=== PATIENT | female | born 1965 | race African-American/Black ===

== ENCOUNTER 2017-05-06 07:41 | Inpatient (IN) | payer MEDICARE, OTHER ==
[~2017-05-06] VITALS: Ht 152.4 cm; Wt 81.1 kg
[2017-05-06] VITALS (11 sets, daily range): BP systolic 133–179; BP diastolic 67–96; PULSE 82–96; RESP 16–20; TEMP 97.8–98.6; O2SAT 94–98
[~2017-05-06 07:41] MED LIST: 1-ME1LIQ PO; CITA40 PO; GABA300C3 PO; KEPP1000 PO; LEVE250 PO; REME15TA PO; RISP3TAB23 PO; VITA100T55 PO
[2017-05-06] MEDS ORDERED: CITA40TA4 PO (08:09)
[2017-05-06] MEDS ORDERED: QUET1TAB10 PO (08:09)
[2017-05-06] MEDS ORDERED: LEVE500T8 PO (08:09)
[2017-05-06] MEDS ORDERED: AMLO5 PO (08:09)
[2017-05-06] MEDS ORDERED: GABA300C5 PO (08:09)
[2017-05-06] MEDS ORDERED: DILA100C PO (08:09)
[2017-05-06] MEDS ORDERED: MIRT30TA PO (08:09)
[2017-05-06] MEDS ORDERED: SODIUM CHLORIDE 0.9% FLUSH 10 ML FLUSH IVF PRN (08:45)
[2017-05-06] MEDS ORDERED: LORazepam 2 MG/ML VIAL IVS ONE (08:45)
--- NOTE | 2017-05-06 08:49 | PD ---
HPI Chief Complaint: Seizure Time Seen by Provider: 08:21 Travel History International Travel<30 days: No Contact w/Intl Traveler<30days: No Traveled to known affect area: No History of Present Illness HPI The patient was seen and examined in the presence of the nurse. This patient complains of having a seizure. She has long-standing history of seizure disorder and also noncompliance. She gives some varying answers as to how compliant she's been. I'm not sure if she's taken medicine in the last few days or not given her variable answers. She reports that she had a seizure and fell and struck her head. She does complain of left frontal headache. She denies any neck pain. She has bilateral knee pain. Symptoms severity is moderate. Duration 1 hour. Paramedics brought her in. Patient is very anxious and panicky. No alleviating factors. Symptoms exacerbated by her lack of compliance. PFSH Past Medical History Arthritis: No Asthma: No Autoimmune Disease: No Blood Disorders: No Anxiety: Yes Depression: Yes Heart Rhythm Problems: No Cancer: No Cardiovascular Problems: Yes High Cholesterol: No Chemotherapy: No Chest Pain: No Congestive Heart Failure: No COPD: No Cerebrovascular Accident: No Diabetes: No Diminished Hearing: No Endocrine: No Gastrointestinal Disorders: No Genitourinary: No Headaches: Yes Hypertension: Yes Immune Disorder: No Implanted Vascular Access Dvce: No Musculoskeletal: No Neurologic: Yes Psychiatric: Yes Reproductive: No Respiratory: No Immunizations Current: Yes Migraines: Yes Radiation Therapy: No Seizures: Yes Sleep Apnea: No Thyroid Disease: No Tetanus Vaccination: > 5 Years Influenza Vaccination: Yes PNEUMOCCOCAL Vaccine (Year): 2 ?: Not Menopausal: Yes : 2 Para: 2 Miscarriage: 0 : 0 Tubal Ligation: Yes Past Surgical History Abdominal Surgery: No Cardiac Surgery: No Ear Surgery: No Endocrine Surgery: No Eye Surgery: No Genitourinary Surgery: No Gynecologic Surgery: Yes (TUBAL LIGATION) Oral Surgery: No Thoracic Surgery: No Other Surgery: Yes Social History Alcohol Use: No Tobacco Use: No Substance Use: No Allergies-Medications (Allergen,Severity, Reaction): Coded Allergies: No Known Allergies (Verified Adverse Reaction, Unknown, 05/06/17) Reported Meds & Prescriptions Reported Meds & Active Scripts Active Reported Gabapentin 300 Mg Cap 300 Mg PO QID Norvasc (Amlodipine Besylate) 5 Mg Tab 5 Mg PO DAILY Dilantin (Phenytoin Extended) 100 Mg Cap 100 Mg PO TID Quetiapine (Quetiapine Fumarate) 300 Mg Tab 300 Mg PO HS Levetiracetam 500 Mg Tab 500 Mg PO TID Citalopram (Citalopram Hydrobromide) 40 Mg Tab 40 Mg PO HS Mirtazapine 30 Mg Tab 30 Mg PO HS Review of Systems General / Constitutional: No: Fever Eyes: No: Visual changes HENT: Positive: Headaches Cardiovascular: No: Chest Pain or Discomfort Respiratory: No: Shortness of Breath Gastrointestinal: No: Abdominal Pain Genitourinary: No: Dysuria Musculoskeletal: Positive: Pain Skin: No Rash Neurologic: Positive: Headache, Seizures, No: Weakness Psychiatric: Positive: Anxiety, No: Depression Endocrine: No: Polydipsia Hematologic/Lymphatic: No: Easy Bruising Physical Exam Narrative GENERAL: Well-nourished, well-developed patient in no apparent distress. SKIN: Focused skin assessment reveals no rash and nodules. Skin is Warm and dry. HEAD: Has some tenderness and swelling to the left low forehead. Normocephalic. EYES: Pupils equal and round. No scleral icterus. No injection or drainage. ENT: No nasal bleeding or discharge. Mucous membranes pink and moist. Has a laceration of the lower lip 0.75 cm in length. Missing a left upper tooth that came out during the fall she reports. She has the tooth. NECK: Trachea midline. No JVD. No midline tenderness CARDIOVASCULAR: Regular rate and rhythm. No murmur appreciated. RESPIRATORY: No accessory muscle use. Clear to auscultation. Breath sounds equal bilaterally. GASTROINTESTINAL: Abdomen soft, non-tender, nondistended. Hepatic and splenic margins not palpable. MUSCULOSKELETAL: No obvious deformities. No clubbing. No cyanosis. No edema. Has some lower extremity abrasion. There is bilateral knee tenderness. NEUROLOGICAL: Awake and alert. No obvious cranial nerve deficits. Motor grossly within normal limits. Normal speech. PSYCHIATRIC: Very anxious mood and affect; insight and judgment seems a bit reduced . Data Data Last Documented VS Vital Signs Date Time Temp Pulse Resp B/P (MAP) Pulse Ox O2 Delivery O2 Flow Rate FiO2 05/06/17 14:07 97.9 96 16 139/87 (104) 98 Room Air Orders Orders Complete Blood Count With Diff (05/06/17 08:33) Alcohol (Ethanol) (1/25/18 08:33) Phenytoin (Dilantin) (05/06/17 08:33) Drug Screen, Random Urine (05/06/17 08:33) Blood Glucose (05/06/17 08:33) Ecg Monitoring (05/06/17 08:33) Iv Access Insert/Monitor (05/06/17 08:33) Oximetry (05/06/17 08:33) Comprehensive Metabolic Panel (05/06/17 08:33) Sodium Chloride 0.9% Flush (Ns Flush) (05/06/17 08:45) Lorazepam Inj (Ativan Inj) (05/06/17 08:45) Ct Brain W/O Iv Contrast(Rout) (05/06/17 ) Knee, Complete (4vws) (05/06/17 ) Knee, Complete (4vws) (05/06/17 ) Phenytoin (Dilantin) (05/06/17 12:25) Labs Laboratory Tests Test 05/06/17 08:30 05/06/17 09:30 05/06/17 12:42 White Blood Count 21.2 TH/MM3 Red Blood Count 4.39 MIL/MM3 Hemoglobin 13.5 GM/DL Hematocrit 39.6 % Mean Corpuscular Volume 90.1 FL Mean Corpuscular Hemoglobin 30.7 PG Mean Corpuscular Hemoglobin Concent 34.1 % Red Cell Distribution Width 15.5 % Platelet Count 517 TH/MM3 Mean Platelet Volume 7.5 FL Neutrophils (%) (Auto) 77.4 % Lymphocytes (%) (Auto) 13.9 % Monocytes (%) (Auto) 8.4 % Eosinophils (%) (Auto) 0.0 % Basophils (%) (Auto) 0.3 % Neutrophils # (Auto) 16.4 TH/MM3 Lymphocytes # (Auto) 2.9 TH/MM3 Monocytes # (Auto) 1.8 TH/MM3 Eosinophils # (Auto) 0.0 TH/MM3 Basophils # (Auto) 0.1 TH/MM3 CBC Comment DIFF FINAL Differential Comment Blood Urea Nitrogen 8 MG/DL Creatinine 0.99 MG/DL Random Glucose 124 MG/DL Total Protein 8.3 GM/DL Albumin 3.5 GM/DL Calcium Level 8.7 MG/DL Alkaline Phosphatase 136 U/L Aspartate Amino Transf (AST/SGOT) 48 U/L Alanine Aminotransferase (ALT/SGPT) 18 U/L Total Bilirubin 0.5 MG/DL Sodium Level 134 MEQ/L Potassium Level 4.6 MEQ/L Chloride Level 103 MEQ/L Carbon Dioxide Level 22.1 MEQ/L Anion Gap 9 MEQ/L Estimat Glomerular Filtration Rate 71 ML/MIN Phenytoin (Dilantin) Level 38.7 MCG/ML 37.4 MCG/ML Ethyl Alcohol Level LESS THAN 3 MG/DL Urine Opiates Screen NEG Urine Barbiturates Screen NEG Urine Amphetamines Screen NEG Urine Benzodiazepines Screen NEG Urine Cocaine Screen POS Urine Cannabinoids Screen POS MDM Medical Decision Making Medical Screen Exam Complete: Yes Emergency Medical Condition: Yes Medical Record Reviewed: Yes Differential Diagnosis Breakthrough seizure, noncompliance, intracranial hemorrhage, knee fracture Narrative Course I have reviewed the patient's electronic medical record. Patient was here for multiple visits in 2015 for breakthrough seizure IV placed CBC shows leukocytosis and thrombocytosis metabolic profile reasonably normal LFT's basically normal lipase is normal Alcohol level is negative Tox screen is positive for marijuana and cocaine I gave her 1 mg IV Ativan Brain CT is negative for traumatic injury intracranially, has soft tissue swelling superficially Right knee x-rays are reviewed and negative for fracture Left knee x-rays are reviewed and negative for fracture Procedure note: She is verbal consent to lower lip laceration repair LACERATION LOCATION: Lower lip LENGTH: 0.75 cm NUMBER OF STITCHES/SORAIDA: 1 REPAIR: The area of the laceration was cleaned and sterilely draped. No anesthesia required. The wound was copiously irrigated and explored without evidence of foreign body or neurovascular injury. The wound was closed using 5- 0 Vicryl . This was a single layer repair. Patient tolerated the procedure well. Dilantin level is come back very elevated at 38.7. This was reviewed with poison control. They did not think the patient required admission and lasts a repeat level would not go down. 4 hours after the original level was drawn I'm repeating a second one. Repeat Dilantin 4 hours later is at 37, barely lower Tried and laid her and she cannot and related all. She can't even really get out of bed effectively. She will Require adMission for Dilantin toxicity I reviewed with hospitalist Diagnosis Primary Impression: Phenytoin toxicity Qualified Codes: T42.0X1A - Poisoning by hydantoin derivatives, accidental ( unintentional), initial encounter Additional Impressions: Seizure Polysubstance abuse Admitting Information Admitting Physician Requests: Admit Eusebio Mendoza MD May 06, 2017 08:48
[2017-05-06 09:07] LABS: AUTOMATED NEUTROPHIL # 16.4 TH/MM3 (1.8-7.7); BASOPHIL # 0.1 TH/MM3 (0-0.2); BASOPHIL % 0.3 % (0.0-2.0); HEMATOCRIT 39.6 % (35.0-46.0); HEMOGLOBIN 13.5 GM/DL (11.6-15.3); LYMPH % 13.9 % (9.0-44.0); LYMPHOCYTE # 2.9 TH/MM3 (1.0-4.8); MEAN CELL VOLUME 90.1 FL (80.0-100.0); MEAN CORPUSCULAR HEMOGLOBIN 30.7 PG (27.0-34.0); MEAN CORPUSCULAR HGB CONC 34.1 % (32.0-36.0); MEAN PLATELET VOLUME 7.5 FL (7.0-11.0); MONO % 8.4 % (0.0-8.0); MONOCYTE # 1.8 TH/MM3 (0-0.9); NEUT % 77.4 % (16.0-70.0); PLATELET COUNT 517 TH/MM3 (150-450); RED BLOOD COUNT 4.39 MIL/MM3 (4.00-5.30); RED CELL DISTRIBUTION WIDTH 15.5 % (11.6-17.2); WHITE BLOOD COUNT 21.2 TH/MM3 (4.0-11.0)
--- NOTE | 2017-05-06 09:23 | RADRPT ---
EXAM DATE/TIME: 05/06/2017 08:57 [facility] COMPARISON: CT BRAIN W/O CONTRAST, May 15, 2015, 12:16. INDICATIONS : Seizure x3 this am hit head and face. RADIATION DOSE: 33.81 CTDIvol (mGy) MEDICAL HISTORY : Seizures. Hypertension. SURGICAL HISTORY : Tubal ligation. ENCOUNTER: Initial ACUITY: 1 day PAIN SCALE: 10/10 LOCATION: Bilateral cranial TECHNIQUE: Multiple contiguous axial images were obtained of the head. Using automated exposure control and adj ustment of the mA and/or kV according to patient size, radiation dose was kept as low as reasonably a chievable to obtain optimal diagnostic quality images. DICOM format image data is available electro nically for review and comparison. FINDINGS: CEREBRUM: The ventricles are normal for age. No evidence of midline shift, mass lesion, hemorrhage or acute in farction. No extra-axial fluid collections are seen. POSTERIOR FOSSA: The cerebellum and brainstem are intact. The 4th ventricle is midline. The cerebellopontine angle i s unremarkable. EXTRACRANIAL: The visualized portion of the orbits is intact. Mild left frontal soft tissue swelling. SKULL: The calvaria is intact. No evidence of skull fracture. CONCLUSION: 1. Mild left frontal soft tissue swelling. 2. No acute intracranial abnormality. Yovany Dumont Jr., MD on May 06, 2017 at 9:19 Board Certified Radiologist. This report was verified electronically.
[2017-05-06 09:25] LABS: ALT (GPT) 18 U/L (10-53)
[2017-05-06 09:28] LABS: ALBUMIN 3.5 GM/DL (3.4-5.0); ALKALINE PHOSPHATASE 136 U/L (45-117); AST (GOT) 48 U/L (15-37); BICARBONATE 22.1 MEQ/L (21.0-32.0); BLOOD UREA NITROGEN 8 MG/DL (7-18); CALCIUM 8.7 MG/DL (8.5-10.1); CHLORIDE 103 MEQ/L (98-107); CREATININE 0.99 MG/DL (0.50-1.00); GLOMERULAR FILTRATION RATE 71 ML/MIN (>89); GLUCOSE,RANDOM 124 MG/DL (74-106); SODIUM (NA) 134 MEQ/L (136-145); TOTAL BILIRUBIN ADULT 0.5 MG/DL (0.2-1.0); TOTAL PROTEIN 8.3 GM/DL (6.4-8.2)
[2017-05-06 09:33] LABS: PHENYTOIN (DILANTIN) 38.7 MCG/ML (10.0-20.0)
--- NOTE | 2017-05-06 09:35 | RADRPT ---
EXAM DATE/TIME: 05/06/2017 09:09 [facility] COMPARISON: No previous studies available for comparison. INDICATIONS : Patient had seizure, falling on knees pain with swelling. MEDICAL HISTORY : Seizure SURGICAL HISTORY : None. ENCOUNTER: Initial ACUITY: 1 day PAIN SCORE: 6/10 LOCATION: Right knee TECH NOTE: RMA< DFSSCDOROTEO PAPPAS MR#[id number] :63 Exam date/desc:May 06, 2017KNEE RIGHT COMPLE TE (4VWS) FINDINGS: Four view examination of the right knee demonstrates no evidence of fracture or dislocation. Bony mi neralization is normal. The articular surfaces are intact. The suprapatellar soft tissues have a no rmal configuration. CONCLUSION: Unremarkable examination of the right knee. Yovany Dumont Jr., MD on May 06, 2017 at 9:32 Board Certified Radiologist. This report was verified electronically.
--- NOTE | 2017-05-06 09:40 | RADRPT ---
EXAM DATE/TIME: 05/06/2017 09:15 [facility] COMPARISON: No previous studies available for comparison. INDICATIONS : Patient had seizure falling on knees. MEDICAL HISTORY : Seizure SURGICAL HISTORY : None. ENCOUNTER: Initial ACUITY: 1 day PAIN SCORE: 5/10 LOCATION: Left Knee FINDINGS: 4 views of the left knee. Bone alignment within normal limits. No evidence of fracture. No evidence of joint effusion. Small quadriceps insertion enthesophyte noted. No joint narrowing. No focal bone e rosion. CONCLUSION: No evidence of fracture. Fuentes Mcneil MD on May 06, 2017 at 9:34 Board Certified Radiologist. This report was verified electronically.
[2017-05-06] MEDS ORDERED: MAGNESIUM HYDROXIDE SUSP 30 ML CUP PO PRN (14:45)
[2017-05-06] MEDS ORDERED: SODIUM CHLORIDE 0.9% FLUSH 10 ML FLUSH IV FLUSH PRN (14:45)
[2017-05-06] MEDS ORDERED: ONDANSETRON HCL 4 MG/2 ML VIAL IVP PRN (14:45)
[2017-05-06] MEDS ORDERED: LACTULOSE SYRUP 20 GM/30 ML CUP PO PRN (14:45)
[2017-05-06] MEDS ORDERED: SENNOSIDES 8.6 MG TAB PO PRN (14:45)
[2017-05-06] MEDS ORDERED: ACETAMINOPHEN 325 MG TAB PO PRN (14:45)
[2017-05-06] MEDS ORDERED: NALOXONE HCL 0.4 MG/ML AMP IV PUSH PRN (14:45)
[2017-05-06] MEDS ORDERED: BISACODYL 10 MG SUPP RECTAL PRN (14:45)
[2017-05-06] MEDS: SODIUM CHLOR 0.9% 1000 ML INJ 1,000 ML IV SCH (15:09)
--- NOTE | 2017-05-06 15:54 | HHI.HP ---
HPI [facility] Phys[facility] Christopher Padilla MD Admission Diagnosis dilantin toxicity, PSA, seizure Diagnoses: Chief Complaint: seizures Travel History International Travel<30 Days: No Contact w/Intl Traveler <30 Da: No Traveled to Known Affected Are: No History of Present Illness Written by Marivel Dow, acting as scribe for Dr. Ashton on 05/06/17 at 15: 51. 51-year-old female with history of seizures, anxiety, depression, hypertension, presents with 3 seizures in the past 24hours. The patient states she presented to the hospital because she's had 2 seizures last night and 1 this morning. She hit her head with the seizure this morning, sustaining a laceration to her lip and forehead hematoma. She reports her daughter witnessed tonic clonic seizure activity. She reports tongue and lip biting with her seizures. Prior to the seizures, she feels overheated and drowsy, then she usually lays down then has a seizure. She denies any recent changes to her medications. She takes Keppra and Dilantin for her seizures. She reports compliance with her medications. No further seizures while in the ER, however patient has been postictal and unable to ambulate. Her Dilantin level was found to be elevated at 38.7. UDS positive for cocaine and cannabinoids. Today she does report dizziness and gait instability. Denies any recent fevers/chills, headache, chest pain, palpitations , cough, shortness of breath, abdominal or urinary complaints. She denies any other medical complaints at this time. Review of Systems Except as stated in HPI: all other systems reviewed are Neg Past Family Social History Past Medical History seizures anxiety depression hypertension Past Surgical History Tubal ligation Reported Medications Gabapentin 300 Mg Cap 300 Mg PO QID Norvasc (Amlodipine Besylate) 5 Mg Tab 5 Mg PO DAILY Dilantin (Phenytoin Extended) 100 Mg Cap 100 Mg PO TID Quetiapine (Quetiapine Fumarate) 300 Mg Tab 300 Mg PO HS Levetiracetam 500 Mg Tab 500 Mg PO TID Citalopram (Citalopram Hydrobromide) 40 Mg Tab 40 Mg PO HS Mirtazapine 30 Mg Tab 30 Mg PO HS Allergies: Coded Allergies: No Known Allergies (Verified Allergy, Unknown, 05/06/17) Active Ordered Medications Current Medications Medications (Trade) Dose Ordered Sig/Jarrett Route Start Time Stop Time Status Last Admin (NS Flush) 2 ml UNSCH PRN IVF 05/06/17 08:45 05/06/17 08:48 (Norvasc) 5 mg DAILY PO 05/07/17 09:00 (CeleXA) 40 mg HS PO 05/06/17 21:00 (Neurontin) 300 mg QID PO 05/06/17 18:00 (Keppra) 500 mg TID PO 05/06/17 18:00 (Remeron) 30 mg HS PO 05/06/17 21:00 (SEROquel) 300 mg HS PO 05/06/17 21:00 Sodium Chloride 1,000 ml @ 100 mls/hr Q10H IV 05/06/17 14:44 05/06/17 15:09 (NS Flush) 2 ml UNSCH PRN IV FLUSH 05/06/17 14:45 (NS Flush) 2 ml BID IV FLUSH 05/06/17 21:00 (Tylenol) 650 mg Q4H PRN PO 05/06/17 14:45 (Zofran Inj) 4 mg Q6H PRN IVP 05/06/17 14:45 (Tylenol) 650 mg Q6H PRN PO 05/06/17 14:45 (Narcan Inj) 0.4 mg UNSCH PRN IV PUSH 05/06/17 14:45 (Paula-Colace) 1 tab BID PO 05/06/17 21:00 (Milk Of Magnesia Liq) 30 ml Q12H PRN PO 05/06/17 14:45 (Senokot) 17.2 mg Q12H PRN PO 05/06/17 14:45 (Dulcolax Supp) 10 mg DAILY PRN RECTAL 05/06/17 14:45 (Lactulose Liq) 30 ml DAILY PRN PO 05/06/17 14:45 Family History Denies any family history of seizures or brain cancers. Social History Denies any tobacco or alcohol use Uses cocaine and marijuana Physical Exam Vital Signs Vital Signs Date Time Temp Pulse Resp B/P (MAP) Pulse Ox O2 Delivery O2 Flow Rate FiO2 05/06/17 14:07 97.9 96 16 139/87 (104) 98 Room Air 05/06/17 12:00 97.8 83 16 150/77 (101) 98 Room Air 05/06/17 10:28 97.9 96 18 137/74 (95) 98 Room Air 05/06/17 09:42 97.8 84 17 168/89 (115) 98 Room Air 05/06/17 08:44 16 98 Room Air 05/06/17 08:00 81 16 98 Room Air 05/06/17 07:51 97.9 82 18 179/96 (123) 98 Physical Exam GENERAL: Well-nourished, well-developed middle aged female patient in [facility]. SKIN: Warm and dry. No rash. Lower lip laceration s/p repair. HEAD: Normocephalic. Left frontal hematoma. EYES: Pupils equal and round. No scleral icterus. Left eye injection. ENT: No nasal bleeding or discharge. Mucous membranes pink and moist. NECK: Supple. Trachea midline. CARDIOVASCULAR: Regular rate and rhythm. S1, S2 noted. No murmur appreciated. RESPIRATORY: No accessory muscle use. Clear to auscultation. Breath sounds equal bilaterally. GASTROINTESTINAL: Abdomen soft, non-tender, nondistended. Normoactive bowel sounds x4. MUSCULOSKELETAL: No obvious deformities. Extremities without clubbing, cyanosis , or edema. NEUROLOGICAL: Awake and alert. No obvious cranial nerve deficits. Motor grossly within normal limits. Moving all extremities spontaneously. Normal speech. PSYCHIATRIC: Slightly anxious; insight and judgment normal. Laboratory Laboratory Tests Test 05/06/17 08:30 05/06/17 09:30 05/06/17 12:42 White Blood Count 21.2 Red Blood Count 4.39 Hemoglobin 13.5 Hematocrit 39.6 Mean Corpuscular Volume 90.1 Mean Corpuscular Hemoglobin 30.7 Mean Corpuscular Hemoglobin Concent 34.1 Red Cell Distribution Width 15.5 Platelet Count 517 Mean Platelet Volume 7.5 Neutrophils (%) (Auto) 77.4 Lymphocytes (%) (Auto) 13.9 Monocytes (%) (Auto) 8.4 Eosinophils (%) (Auto) 0.0 Basophils (%) (Auto) 0.3 Neutrophils # (Auto) 16.4 Lymphocytes # (Auto) 2.9 Monocytes # (Auto) 1.8 Eosinophils # (Auto) 0.0 Basophils # (Auto) 0.1 CBC Comment DIFF FINAL Differential Comment Blood Urea Nitrogen 8 Creatinine 0.99 Random Glucose 124 Total Protein 8.3 Albumin 3.5 Calcium Level 8.7 Alkaline Phosphatase 136 Aspartate Amino Transf (AST/SGOT) 48 Alanine Aminotransferase (ALT/SGPT) 18 Total Bilirubin 0.5 Sodium Level 134 Potassium Level 4.6 Chloride Level 103 Carbon Dioxide Level 22.1 Anion Gap 9 Estimat Glomerular Filtration Rate 71 Phenytoin (Dilantin) Level 38.7 37.4 Ethyl Alcohol Level LESS THAN 3 Urine Opiates Screen NEG Urine Barbiturates Screen NEG Urine Amphetamines Screen NEG Urine Benzodiazepines Screen NEG Urine Cocaine Screen POS Urine Cannabinoids Screen POS Result Diagram: 05/06/1730 05/06/1730 Imaging Last Impressions Knee X-Ray 05/06/17 0000 Signed Impressions: Service Date/Time: April 09:09 - CONCLUSION: Unremarkable examination of the right knee. Yovany Dumont Jr., MD Head CT 05/06/17 0000 Signed Impressions: Service Date/Time: April 08:57 - CONCLUSION: 1. Mild left frontal soft tissue swelling. 2. No acute intracranial abnormality. Yovany Dumont Jr., MD Caprini VTE Risk Assessment Caprini VTE Risk Assessment: No/Low Risk (score <= 1) Caprini Risk Assessment Model Point Value = 1 Point Value = 2 Point Value = 3 Point Value = 5 Age 41-60 Minor surgery BMI > 25 kg/m2 Swollen legs Varicose veins or History of unexplained or recurrent spontaneous Oral contraceptives or hormone replacement Sepsis (< 1 month) Serious lung disease, including pneumonia (< 1 month) Abnormal pulmonary function Acute myocardial infarction Congestive heart failure (< 1 month) History of inflammatory bowel disease Medical patient at bed rest Age 61-74 Arthroscopic surgery Major open surgery (> 45 min) Laparoscopic surgery (> 45 min) Malignancy Confined to bed (> 72 hours) Immobilizing plaster cast Central venous access Age >= 75 History of VTE Family history of VTE Factor V Leiden Prothrombin [id number] Lupus anticoagulant Anticardiolipin antibodies Elevated serum homocysteine Heparin-induced thrombocytopenia Other congenital or acquired thrombophilia Stroke (< 1 month) Elective arthroplasty Hip, pelvis, or leg fracture Acute spinal cord injury (< 1 month) Prophylaxis Regimen Total Risk Factor Score Risk Level Prophylaxis Regimen 0-1 Low Early ambulation 2 Moderate Order ONE of the following: *Sequential Compression Device (SCD) *Heparin 5000 units SQ BID 3-4 Higher Order ONE of the following medications: *Heparin 5000 units SQ TID *Enoxaparin/Lovenox 40 mg SQ daily (WT < 150 kg, CrCl > 30 mL/min) *Enoxaparin/Lovenox 30 mg SQ daily (WT < 150 kg, CrCl > 10-29 mL/min) *Enoxaparin/Lovenox 30 mg SQ BID (WT < 150 kg, CrCl > 30 mL/min) AND/OR *Sequential Compression Device (SCD) 5 or more Highest Order ONE of the following medications: *Heparin 5000 units SQ TID (Preferred with Epidurals) *Enoxaparin/Lovenox 40 mg SQ daily (WT < 150 kg, CrCl > 30 mL/min) *Enoxaparin/Lovenox 30 mg SQ daily (WT < 150 kg, CrCl > 10-29 mL/min) *Enoxaparin/Lovenox 30 mg SQ BID (WT < 150 kg, CrCl > 30 mL/min) AND *Sequential Compression Device (SCD) Assessment and Plan Problem List: (1) Seizure ICD Code: R56.9 - Convulsions Status: Chronic (2) Phenytoin toxicity ICD Code: T42.0X1A - Poisoning by hydantoin derivatives, accidental ( unintentional), initial encounter Status: Acute (3) Polysubstance abuse ICD Code: F19.10 - Other psychoactive substance abuse, uncomplicated Status: Acute Assessment and Plan 51-year-old female with history of seizures, anxiety, depression, hypertension, presents with 3 seizures in the past 24hours. Seizures: patient reports 3 seizures in past 24 hours. Suspect secondary to cocaine use. -Check EEG -Holding patient's dilantin with dilantin toxicity -Continue patient's Keppra -IV Ativan prn seizure -Monitor on telemetry -Advised on cessation from drugs or any toxic substances that can trigger a seizure -Seizure/Fall precautions -No driving -Check CPK Dilantin Toxicity: dilantin level 38. -hold patient's dilantin -monitor daily dilantin level Toxic Encephalopathy: patient with AMS while in the ER, appears to be more awake /alert. Suspect secondary to polysubstance abuse, dilantin toxicity, and postictal state. -head CT images reviewed, shows mild left frontal soft tissue swelling; no acute intracranial abnormality -monitor neuro checks -monitor for improvement Leukocytosis: WBC 21.2K. Suspect reactive secondary to seizures. Rule out infection. Afebrile. -CXR images reviewed, no acute findings. -check urinalysis -Give IVF hydration -Repeat CBC in am Hypertension: chronic, fairly well controlled -continue patient's Norvasc 5mg daily -monitor BP and adjust antihypertensives as needed Anxiety/Depression: chronic -continue patient's Citalopram, Mirtazapine, and Seroquel Lip Laceration: secondary to fall/seizure as above -s/p repair in the ER Left Frontal Hematoma: secondary to fall/seizure -ice pack to forehead -pain control prn Polysubstance Abuse: acute on chronic -UDS positive for cocaine and cannabinoids -strongly counseled on cessation DVT Prophylaxis: teds/SCDs; avoid chemoprophylaxis with recent head injury Discussed Condition With This note was transcribed by trenton Dow. I, Dr. Manuel Ashton personally performed the history, physical exam, and medical decision making; and confirmed the accuracy of the information in the transcribed note. Authenticated by Dr. Manuel Ashton on 05/06/17 at 15:59. Physician Certification 2 Midnight Certification Type: Admission for Inpatient Services Order for Inpatient Services The services are ordered in accordance with Medicare regulations or non- Medicare payer requirements, as applicable. In the case of services not specified as inpatient-only, they are appropriately provided as inpatient services in accordance with the 2-midnight benchmark. Estimated LOS (days): 2 days is the estimated time the patient will need to remain in the hospital, assuming treatment plan goals are met and no additional complications. Post-Hospital Plan: Home Problem Qualifiers (1) Phenytoin toxicity: Qualified Codes: T42.0X1A - Poisoning by hydantoin derivatives, accidental ( unintentional), initial encounter Marivel Dow PA-C May 06, 2017 3:54 pm Manuel Ashton MD May 06, 2017 3:59 pm
--- NOTE | 2017-05-06 16:25 | RADRPT ---
EXAM DATE/TIME: 05/06/2017 14:57 [facility] COMPARISON: CHEST SINGLE AP, October 01, 2015, 19:20. INDICATIONS : Short of breath, cough MEDICAL HISTORY : Seizures. Hypertension. SURGICAL HISTORY : Tubal ligation. ENCOUNTER: Initial ACUITY: 1 week PAIN SCORE: 0/10 LOCATION: chest FINDINGS: Single AP view of the chest. Lungs are clear. Lung volumes are low. No evidence of pleural effusion o r pneumothorax. Cardiomediastinal silhouette within normal limits. CONCLUSION: No acute cardiopulmonary disease identified. Fuentes Mcneil MD on May 06, 2017 at 16:22 Board Certified Radiologist. This report was verified electronically.
[2017-05-06] MEDS ORDERED: LORazepam 2 MG/ML VIAL IV PUSH PRN (16:30)
[2017-05-06] MEDS: GABAPENTIN 300 MG CAP PO SCH ×2 (18:23→20:49)
[2017-05-06] MEDS: levETIRAcetam 500 MG TAB PO SCH (18:23)
--- NOTE | 2017-05-06 19:31 | MG ---
cc: CAIT GUADALUPE MD Lab No: Date: 05/06/17 Age: 51 Sex: F Race: REFERRING PHYSICIAN Dr. Ashton An EEG was obtained on this 51-year-old patient awake, drowsy and slightly confused with some hallucinations as well. History of seizure. The EEG shows a lot of low amplitude beta rhythms intermixed with some low to mid amplitude alpha activity. There are some intermixed sharp contoured waves, questionable sharp discharges on the left more than right. The background is reactive. There are theta rhythms as well. There is awake and drowsiness. There is no ictal activity. Photic stimulation showed some bilateral driving response. INTERPRETATION Mildly abnormal EEG. There is some intermixed sharp waves/discharges, possibly left more than right, of possible epileptiform significance. There is no ictal activity. MD LINDSEY Mcnally/ /6:10 PM /7:11 PM
[2017-05-06] MEDS: CITALOPRAM HYDROBROMIDE 40 MG TAB PO SCH (20:49)
[2017-05-06] MEDS: MIRTAZAPINE 15 MG TAB PO SCH (20:49)
[2017-05-06] MEDS: ACETAMINOPHEN 325 MG TAB PO PRN (20:49)
[2017-05-06] MEDS: SODIUM CHLORIDE 0.9% FLUSH 10 ML FLUSH IV FLUSH SCH (20:50)
[2017-05-06] MEDS: DOCUSATE SODIUM 50 MG/SENNA 8.6 MG TAB PO SCH (20:50)
[2017-05-06] MEDS: QUEtiapine FUMARATE 300 MG TAB PO SCH (21:13)
[2017-05-06 22:54] LABS: AMORPHOUS SEDIMENT, URINE RARE; BILIRUBIN, URINE NEG (NEG); BLOOD, URINE SMALL (NEG); GLUCOSE,URINE NEG (NEG); HYALINE CAST, URINE 3 /lpf (RARE); KETONE, URINE 10 mg/dL (NEG); MUCUS URINE FEW /lpf (OCC); NITRITE,URINE NEG (NEG); SQUAMOUS EPITHELIAL CELL URINE 4 /hpf (0-5); URINE COLOR YELLOW (YELLW/STRAW); URINE LEUKOCYTE ESTERASE NEG (NEG)
[2017-05-07] VITALS (10 sets, daily range): BP systolic 112–141; BP diastolic 59–96; PULSE 61–94; RESP 16–20; TEMP 97.8–98.5; O2SAT 94–96
[2017-05-07] MEDS: SODIUM CHLOR 0.9% 1000 ML INJ 1,000 ML IV SCH ×3 (00:57→22:09)
[2017-05-07 08:15] LABS: AUTOMATED NEUTROPHIL # 10.2 TH/MM3 (1.8-7.7); BASOPHIL % 0.3 % (0.0-2.0); EOSINOPHIL # 0.1 TH/MM3 (0-0.4); EOSINOPHIL % 0.5 % (0.0-4.0); HEMATOCRIT 38.3 % (35.0-46.0); HEMOGLOBIN 13.2 GM/DL (11.6-15.3); LYMPH % 21.9 % (9.0-44.0); LYMPHOCYTE # 3.2 TH/MM3 (1.0-4.8); MEAN CELL VOLUME 89.8 FL (80.0-100.0); MEAN CORPUSCULAR HGB CONC 34.5 % (32.0-36.0); MEAN PLATELET VOLUME 7.3 FL (7.0-11.0); MONO % 7.7 % (0.0-8.0); MONOCYTE # 1.1 TH/MM3 (0-0.9); NEUT % 69.6 % (16.0-70.0); PLATELET COUNT 422 TH/MM3 (150-450); RED BLOOD COUNT 4.26 MIL/MM3 (4.00-5.30); RED CELL DISTRIBUTION WIDTH 15.8 % (11.6-17.2); WHITE BLOOD COUNT 14.7 TH/MM3 (4.0-11.0)
[2017-05-07 09:10] LABS: ALBUMIN 3.2 GM/DL (3.4-5.0); ALKALINE PHOSPHATASE 129 U/L (45-117); ALT (GPT) 20 U/L (10-53); AST (GOT) 38 U/L (15-37); BICARBONATE 24.1 MEQ/L (21.0-32.0); BLOOD UREA NITROGEN 5 MG/DL (7-18); CALCIUM 8.3 MG/DL (8.5-10.1); CHLORIDE 103 MEQ/L (98-107); CREATININE 0.62 MG/DL (0.50-1.00); GLOMERULAR FILTRATION RATE 122 ML/MIN (>89); GLUCOSE,RANDOM 87 MG/DL (74-106); SODIUM (NA) 134 MEQ/L (136-145); TOTAL BILIRUBIN ADULT 0.5 MG/DL (0.2-1.0); TOTAL PROTEIN 8.1 GM/DL (6.4-8.2)
[2017-05-07] MEDS: amLODIPine BESYLATE 5 MG TAB PO SCH (09:41)
[2017-05-07] MEDS: DOCUSATE SODIUM 50 MG/SENNA 8.6 MG TAB PO SCH ×2 (09:41→22:02)
[2017-05-07] MEDS: GABAPENTIN 300 MG CAP PO SCH ×4 (09:41→22:02)
[2017-05-07] MEDS: SODIUM CHLORIDE 0.9% FLUSH 10 ML FLUSH IV FLUSH SCH ×2 (09:41→22:02)
[2017-05-07] MEDS: levETIRAcetam 500 MG TAB PO SCH ×3 (09:41→18:00)
[2017-05-07 09:56] LABS: PHENYTOIN (DILANTIN) 38.7 MCG/ML (10.0-20.0)
--- NOTE | 2017-05-07 11:43 | HHI.PR ---
Subjective Remarks patient awake and alert now states she is tire of living and wants to and "kill myself, just suffering" states she is not taking more than her usual dose of dilantin admits to using cocaine - not often though per patient Objective Vitals Vital Signs Date Time Temp Pulse Resp B/P (MAP) Pulse Ox O2 Delivery O2 Flow Rate FiO2 05/07/17 10:22 86 05/07/17 08:18 98.5 87 18 131/85 (100) 94 05/07/17 05:37 97.8 94 19 131/96 (108) 95 05/07/17 00:18 98.4 86 16 112/59 (76) 95 05/07/17 00:15 85 05/06/17 21:10 98.6 84 18 147/67 (93) 94 05/06/17 20:30 84 05/06/17 18:14 97 05/06/17 17:53 98.5 85 20 133/78 (96) 95 05/06/17 15:56 98.1 87 17 143/91 (108) 97 Room Air 05/06/17 14:07 97.9 96 16 139/87 (104) 98 Room Air 05/06/17 12:00 97.8 83 16 150/77 (101) 98 Room Air I/O 05/06/17 05/06/17 05/06/17 05/07/17 05/07/17 05/07/17 07:00 15:00 23:00 07:00 15:00 23:00 # Voids 1 Result Diagram: 05/07/17 0720 05/07/17 0720 Imaging Last Impressions Chest X-Ray 05/06/17 1444 Signed Impressions: Service Date/Time: April 14:57 - CONCLUSION: No acute cardiopulmonary disease identified. Fuentes Mcneil MD Knee X-Ray 05/06/17 0000 Signed Impressions: Service Date/Time: April 09:09 - CONCLUSION: Unremarkable examination of the right knee. Yovany Dumont Jr., MD Head CT 05/06/17 0000 Signed Impressions: Service Date/Time: April 08:57 - CONCLUSION: 1. Mild left frontal soft tissue swelling. 2. No acute intracranial abnormality. Yovany Dumont Jr., MD Objective Remarks awake and alert, oriented x 3 anicteric lungs clear regular rhythm abdomens oft, nontender extremities no edema neuro exam- non focal A/P Problem List: (1) Seizure ICD Code: R56.9 - Convulsions Status: Chronic (2) Phenytoin toxicity ICD Code: T42.0X1A - Poisoning by hydantoin derivatives, accidental ( unintentional), initial encounter Status: Acute (3) Polysubstance abuse ICD Code: F19.10 - Other psychoactive substance abuse, uncomplicated Status: Acute Assessment and Plan 51-year-old female with history of seizures, anxiety, depression, hypertension, presents with 3 seizures in the past 24hours. Seizures: patient reports 3 seizures in past 24 hours. Suspect secondary to cocaine use. -Check EEG -Holding patient's dilantin -Continue patient's Keppra -IV Ativan prn seizure -Monitor on telemetry -d/w her that cocaine and illicit drugs can lower seziure threshold- expressed understanding -Seizure/Fall precautions -No driving -Neurology consulted Dilantin Toxicity: dilantin level 38. -hold patient's dilantin -monitor daily dilantin level rhabdomyolysis Increase IVF rate Toxic Encephalopathy: patient with AMS while in the ER, appears to be more awake /alert.- MS improved appears depressed Suspect secondary to polysubstance abuse, dilantin toxicity, and postictal state. -head CT images reviewed, shows mild left frontal soft tissue swelling; no acute intracranial abnormality -monitor neuro checks - Leukocytosis: WBC 21.2K. Suspect reactive secondary to seizures. Rule out infection. Afebrile. -CXR images reviewed, no acute findings. -check urinalysis -Give IVF hydration -Repeat CBC in am Hypertension: chronic, fairly well controlled -continue patient's Norvasc 5mg daily -monitor BP and adjust antihypertensives as needed Anxiety/Depression: chronic -continue patient's Citalopram, Mirtazapine, and Seroquel Psychiatry consult- - now expressed desperation and wanting to Lip Laceration: secondary to fall/seizure as above -s/p repair in the ER Left Frontal Hematoma: secondary to fall/seizure -ice pack to forehead -pain control prn Polysubstance Abuse: acute on chronic -UDS positive for cocaine and cannabinoids -strongly counseled on cessation DVT Prophylaxis: teds/SCDs; avoid chemoprophylaxis with recent head injury PT consult Problem Qualifiers (1) Phenytoin toxicity: Qualified Codes: T42.0X1A - Poisoning by hydantoin derivatives, accidental ( unintentional), initial encounter Augusto Mast MD May 07, 2017 11:43
--- NOTE | 2017-05-07 12:11 | MB ---
cc: CAIT GUADALUPE M.D. DATE OF CONSULTATION 05/07/2017 HISTORY OF PRESENT ILLNESS The patient is a 51-year-old seen in neurological consultation. She was admitted yesterday with a history of three seizures 24 hours prior to admission. She apparently had some seizure witnessed by the daughter as generalized tonic-clonic activity with tongue and lip injury. She describes that she has had seizures since she was a child. She says she has seen Dr. Knott but her last appointment was a while ago. She was going to see her medical doctor tomorrow. MEDICATIONS She says she takes her medications regularly which include: 1. Dilantin 100 mg three times a day. 2. Keppra 500 mg three times a day. 3. Gabapentin 300 mg four times a day. Other medicines are Norvasc, quetiapine 300 mg at bedtime, citalopram 40 mg at bedtime and mirtazapine. SOCIAL HISTORY The patient denies alcohol and drugs but her urine was positive for cocaine and marijuana. LABORATORY Dilantin level was 38.7. White count yesterday was 21.2, hemoglobin 13.5. Sodium 134. CPK 1586. BUN and creatinine normal. Calcium normal. Glucose 124. NEUROLOGICAL EXAMINATION On exam the patient was asleep but awakened and then she appeared alert and oriented. She thought the date was the , but she knew the day of the week and place, and she provided the medical history. Ocular movements and visual alva full. She feels drowsy. She has grossly normal motor functions in the four extremities. She describes that when she walked with the nurse to the bathroom she was still unable to walk by herself today. Reflexes 1+ at the knees and elbows, diminished at the ankles. Plantar responses probably flexor bilaterally. She has pain in her left knee due to the fall. IMAGING The CT brain showed left frontal tissue swelling but no intracranial abnormality. ASSESSMENT 1. Recurrent seizures. 2. Dilantin toxicity. 3. Drug abuse. 4. Rhabdomyolysis. PLAN/RECOMMENDATIONS The Dilantin needs to be on hold until her Dilantin level comes to around 20-25 when we will resume the Dilantin. It is unclear why her Dilantin level is so high, but evidently she is not compliant with medical care and wonder if she is taking excessive medication or if it is due to the combination of medications and substance abuse. I have discussed all these with the patient. She seems to be improving neurologic-barrios. Monitor Dilantin level daily. She is to be continued with the Keppra as is. Continue on the gabapentin as is. I will follow the neurological course. She has p.r.n. Ativan for seizures. Thank you for asking us to assist in her care. Cait Guadalupe MD OF[facility]/BT /10:13 AM /11:58 AM
[2017-05-07] MEDS: ACETAMINOPHEN 325 MG TAB PO PRN (12:57)
[2017-05-07] MEDS: CITALOPRAM HYDROBROMIDE 40 MG TAB PO SCH (22:02)
[2017-05-07] MEDS: MIRTAZAPINE 15 MG TAB PO SCH (22:02)
[2017-05-07] MEDS: QUEtiapine FUMARATE 300 MG TAB PO SCH (22:02)
[2017-05-08] VITALS (9 sets, daily range): BP systolic 122–143; BP diastolic 60–82; PULSE 77–93; RESP 17–20; TEMP 97.8–98.2; O2SAT 93–97
[2017-05-08] MEDS: SODIUM CHLOR 0.9% 1000 ML INJ 1,000 ML IV SCH ×2 (02:22→15:13)
[2017-05-08] MEDS: SODIUM CHLORIDE 0.9% FLUSH 10 ML FLUSH IV FLUSH SCH ×2 (08:46→21:00)
[2017-05-08] MEDS: GABAPENTIN 300 MG CAP PO SCH ×4 (08:48→21:09)
[2017-05-08] MEDS: DOCUSATE SODIUM 50 MG/SENNA 8.6 MG TAB PO SCH ×2 (08:48→21:09)
[2017-05-08] MEDS: amLODIPine BESYLATE 5 MG TAB PO SCH (08:48)
[2017-05-08] MEDS: levETIRAcetam 500 MG TAB PO SCH ×3 (08:48→17:44)
--- NOTE | 2017-05-08 11:32 | HHI.PR ---
Subjective Remarks this am is smiling and interactive now denies any suicidal thought ro thoughts of dying complains of "sore/aches" muscles voding well good po no headaches Objective Vitals Vital Signs Date Time Temp Pulse Resp B/P (MAP) Pulse Ox O2 Delivery O2 Flow Rate FiO2 05/08/17 08:00 97.8 93 17 137/72 (93) 96 05/08/17 08:00 82 05/08/17 06:08 97.9 85 20 134/78 (96) 93 05/08/17 00:57 97.9 86 19 122/60 (80) 93 05/08/17 00:04 89 05/07/17 21:09 97.9 61 18 141/73 (95) 96 05/07/17 20:30 84 05/07/17 16:00 88 05/07/17 12:50 95 05/07/17 12:29 98.4 88 20 136/77 (96) 95 I/O 05/07/17 05/07/17 05/07/17 05/08/17 05/08/17 05/08/17 07:00 15:00 23:00 07:00 15:00 23:00 # Voids 1 3 Result Diagram: 05/07/17 0720 05/07/17 0720 Imaging Last Impressions Chest X-Ray 05/06/17 1444 Signed Impressions: Service Date/Time: April 14:57 - CONCLUSION: No acute cardiopulmonary disease identified. Fuentes Mcneil MD Knee X-Ray 05/06/17 0000 Signed Impressions: Service Date/Time: April 09:09 - CONCLUSION: Unremarkable examination of the right knee. Yovany Dumont Jr., MD Head CT 05/06/17 0000 Signed Impressions: Service Date/Time: April 08:57 - CONCLUSION: 1. Mild left frontal soft tissue swelling. 2. No acute intracranial abnormality. Yovany Dumont Jr., MD Objective Remarks awake and alert, oriented x 3, no facial swelling, speech clear pupil equally reactive anicteric lungs clear regular rhythm abdomens soft, nontender extremities no edema neuro exam- non focal A/P Problem List: (1) Seizure ICD Code: R56.9 - Convulsions Status: Chronic (2) Phenytoin toxicity ICD Code: T42.0X1A - Poisoning by hydantoin derivatives, accidental ( unintentional), initial encounter Status: Acute (3) Polysubstance abuse ICD Code: F19.10 - Other psychoactive substance abuse, uncomplicated Status: Acute Assessment and Plan 51-year-old female with history of seizures, anxiety, depression, hypertension, presents with 3 seizures in the past 24hours. Seizures: patient reports 3 seizures in past 24 hours. Suspect secondary to cocaine use. -Holding patient's dilantin -Continue patient's Keppra -IV Ativan prn seizure -Monitor on telemetry -d/w her that cocaine and illicit drugs can lower seziure threshold- expressed understanding -Seizure/Fall precautions -No driving -Neurology ff Dilantin Toxicity: dilantin level 38. - gradually trending down -hold patient's dilantin -monitor daily dilantin level rhabdomyolysis seocndary to SZ and cocaine use Increase IVF rate Toxic Encephalopathy: patient with AMS while in the ER, appears to be more awake /alert.-RESOLved appears depressed Suspect secondary to polysubstance abuse, dilantin toxicity, and postictal state. -head CT images reviewed, shows mild left frontal soft tissue swelling; no acute intracranial abnormality -monitor neuro checks - Leukocytosis: WBC 21.2K. Suspect reactive secondary to seizures. Rule out infection. Afebrile. -CXR images reviewed, no acute findings. -check urinalysis -Give IVF hydration -Repeat CBC in am Hypertension: chronic, fairly well controlled -continue patient's Norvasc 5mg daily -monitor BP and adjust antihypertensives as needed Anxiety/Depression: chronic -continue patient's Citalopram, Mirtazapine, and Seroquel in better spirits Psychiatry consulted- - yesterday- was tearful and expressed thoughts of dying Lip Laceration: secondary to fall/seizure as above -s/p repair in the ER Left Frontal Hematoma: secondary to fall/seizure -ice pack to forehead -pain control prn Polysubstance Abuse: acute on chronic -UDS positive for cocaine and cannabinoids -strongly counseled on cessation DVT Prophylaxis: teds/SCDs; avoid chemoprophylaxis with recent head injury PTff- gait ambulation- doing well Problem Qualifiers (1) Phenytoin toxicity: Qualified Codes: T42.0X1A - Poisoning by hydantoin derivatives, accidental ( unintentional), initial encounter Augusto Mast MD May 08, 2017 11:32
--- NOTE | 2017-05-08 16:38 | PD.PSY.CON ---
Provisional Diagnosis Admission Date May 06, 2017 at 14:53 [place] I. Substance-induced mood disorder F 19.94, polysubstance abuse f 19.10 History of Present Illness Service Psychiatry Consult Requested By Attending MGuillermina. Reason for Consult Assessment Primary Care Physician Christopher Padilla MD HPI Patient is a 51-year-old [place] female admitted to the medical service for seizure disorder Dilantin toxicity and altered mental status. When seen in the emergency department. Toxicology was positive for cocaine and marijuana. Upon review of EMR patient has had multiple urine toxicology is positive for cocaine and marijuana going back 7-8 years. At the present time patient laying quietly in her bed RN present throughout session. Patient knows she is being prescribed Seroquel and Celexa and Remeron. She states is being prescribed by her neurologist Dr. Knott. She denies prior psychiatric contact hospitalizations of psychotropic medications. She denies suicidality homicidality voices or visions. He does somewhat minimize her cocaine use, acknowledges marijuana use. She is uncertain as to the reason for the elevated Dilantin level. She reluctantly acknowledges perhaps forgetting her medication and taking more than she should. In any event at this time I feel patient does not meet criteria for inpatient psychiatric care, [place] act, or 4 E. This appears to be substance and drug overdose. There appears to know suicidality involved with this. I would suggest that while she may continue low psychotropic medications she should get mental health referral in the community to appropriately manage it. Thus as okay but I psych to continue her psychotropic medications. It is okay by psych for discharge when she is medically clear and stable with the above referral. Thanks for consult I will sign off at the present time Review of Systems Constitutional: DENIES: Diaphoretic episodes, Fatigue, Fever, Weight gain, Weight loss, Chills, Dizziness, Change in appetite, Night Sweats Endocrine: DENIES: Abnorml menstrual pattern, Heat/cold intolerance, Polydipsia , Polyuria, Polyphagia Eyes: DENIES: Blurred vision, Diplopia, Eye inflammation, Eye pain, Vision loss , Photosensitivity, Double Vision Ears, nose, mouth, throat: DENIES: Tinnitus, Hearing loss, Vertigo, Nasal discharge, Oral lesions, Throat pain, Hoarseness, Ear Pain, Running Nose, Epistaxis, Sinus Pain, Toothache, Odynophagia Respiratory: DENIES: Apneas, Cough, Snoring, Wheezing, Hemoptysis, Sputum production, Shortness of breath Gastrointestinal: DENIES: Abdominal pain, Black stools, Bloody stools, Constipation, Diarrhea, Nausea, Vomiting, Difficulty Swallowing, Anorexia Genitourinary: DENIES: Abnormal vaginal bleeding, Dysmenorrhea, Dyspareunia, Sexual dysfunction, Urinary frequency, Urinary incontinence, Urgency, Hematuria , Dysuria, Nocturia, Vaginal discharge Musculoskeletal: DENIES: Joint pain, Muscle aches, Stiffness, Joint Swelling, Back pain, Neck pain Integumentary: DENIES: Abnormal pigmentation, Pruritus, Rash, Nail changes, Breast masses, Breast skin changes, Nipple discharge Hematologic/lymphatic: DENIES: Bruising, Lymphadenopathy Neurologic: COMPLAINS OF: Seizures, DENIES: Abnormal gait, Headache, Localized weakness, Paresthesias, Speech Problems, Tremor, Poor Balance Psychiatric: DENIES: Anxiety, Confusion, Mood changes, Depression, Hallucinations, Agitation, Suicidal Ideation, Homicidal Ideation, Delusions Past Family Social History Coded Allergies: No Known Allergies (Verified Allergy, Unknown, 05/06/17) Reported Medications Gabapentin (Gabapentin) 300 Mg Cap, 300 MG PO QID, #90 CAP 0 Refills 05/06/17 Amlodipine (Norvasc) 5 Mg Tab, 5 MG PO DAILY for Blood Pressure Management, #30 TAB 0 Refills 05/06/17 Phenytoin Extended (Dilantin) 100 Mg Cap, 100 MG PO TID for Control Seizures, # 90 CAP 0 Refills 05/06/17 Quetiapine (Quetiapine) 300 Mg Tab, 300 MG PO HS, #30 TAB 0 Refills 05/06/17 Levetiracetam (Levetiracetam) 500 Mg Tab, 500 MG PO TID for Control Seizures, # 60 TAB 0 Refills 05/06/17 Citalopram (Citalopram) 40 Mg Tab, 40 MG PO HS for Control Depression, #30 TAB 0 Refills 05/06/17 Mirtazapine (Mirtazapine) 30 Mg Tab, 30 MG PO HS for Depression Control, #30 TAB 0 Refills 05/06/17 Current Medications Medications (Trade) Dose Ordered Sig/Jarrett Route Start Time Stop Time Status Last Admin (NS Flush) 2 ml UNSCH PRN IVF 05/06/17 08:45 05/06/17 08:48 (Norvasc) 5 mg DAILY PO 05/07/17 09:00 05/08/17 08:48 (CeleXA) 40 mg HS PO 05/06/17 21:00 05/07/17 22:02 (Neurontin) 300 mg QID PO 05/06/17 18:00 05/08/17 13:01 (Keppra) 500 mg TID PO 05/06/17 18:00 05/08/17 13:01 (Remeron) 30 mg HS PO 05/06/17 21:00 05/07/17 22:02 (SEROquel) 300 mg HS PO 05/06/17 21:00 05/07/17 22:02 Sodium Chloride 1,000 ml @ 150 mls/hr Q6H40M IV 05/06/17 14:44 05/08/17 15:13 (NS Flush) 2 ml UNSCH PRN IV FLUSH 05/06/17 14:45 (NS Flush) 2 ml BID IV FLUSH 05/06/17 21:00 05/07/17 22:02 (Tylenol) 650 mg Q4H PRN PO 05/06/17 14:45 (Zofran Inj) 4 mg Q6H PRN IVP 05/06/17 14:45 (Tylenol) 650 mg Q6H PRN PO 05/06/17 14:45 05/07/17 12:57 (Narcan Inj) 0.4 mg UNSCH PRN IV PUSH 05/06/17 14:45 (Paula-Colace) 1 tab BID PO 05/06/17 21:00 05/08/17 08:48 (Milk Of Magnesia Liq) 30 ml Q12H PRN PO 05/06/17 14:45 (Senokot) 17.2 mg Q12H PRN PO 05/06/17 14:45 (Dulcolax Supp) 10 mg DAILY PRN RECTAL 05/06/17 14:45 (Lactulose Liq) 30 ml DAILY PRN PO 05/06/17 14:45 (Ativan Inj) 1 mg Q15M PRN IV PUSH 05/06/17 16:30 Family Psych History Patient denies Social History Patient lives independently on her own does have children locally who help her Patient's Strengths (min. 2) Patient verbal able access healthcare Physical Exam Please see MedSur assessments Vital Signs Vital Signs Date Time Temp Pulse Resp B/P (MAP) Pulse Ox O2 Delivery O2 Flow Rate FiO2 05/08/17 12:00 98.2 85 17 134/79 (97) 93 05/06/17 15:56 Room Air I/O 05/08/17 05/08/17 05/09/17 08:00 16:00 00:00 Intake Total 1000 ml Balance 1000 ml Lab Results Test 05/08/17 09:22 Phenytoin (Dilantin) Level 32.4 MCG/ML Mental Status Examination Appearance: Appropriate Consciousness: Alert Orientation: x4 Motor Activity: Other (patient laying in bed) Speech: Pressured, Rapid, Other (loud) Language: Adequate Fund of Knowledge: Adequate Attention and Concentration: Adequate Memory: Unremarkable Mood: Other (euthymic with hypomanic flavor) Affect: Other (increase range and intensity) Thought Process & Associations: Loose associations Thought Content: Other (mildly disorganized) Hallucination Type: None Delusion Type: None Suicidal Ideation: No Suicidal Plan: No Suicidal Intention: No Homicidal Ideation: No Homicidal Plan: No Homicidal Intention: No Insight: Poor Judgment: Poor Assessment & Plan Problem List: (1) Substance induced mood disorder ICD Codes: F19.94 - Other psychoactive substance use, unspecified with psychoactive substance-induced mood disorder (2) Polysubstance abuse ICD Codes: F19.10 - Other psychoactive substance abuse, uncomplicated Status: Acute Assessment & Plan Estimated LOS: days at this time patient does not meet criteria for inpatient psychiatric care, [place] act, or chest of 4 E. This appears be primarily substance related and perhaps advertent overdose of seizure medication. Would recommend referral to psychiatric services in the community perhaps by her primary care physician or Dr. Knott. Is okay to continue her existing psychotropic medications. Thanks for consult I will sign off the present time Discharge Planning See above Request HC Surrog/Guard Advoc?: No Sabino Luna MD May 08, 2017 16:38
[2017-05-08] MEDS: MIRTAZAPINE 15 MG TAB PO SCH (21:08)
[2017-05-08] MEDS: QUEtiapine FUMARATE 300 MG TAB PO SCH (21:09)
[2017-05-08] MEDS: CITALOPRAM HYDROBROMIDE 40 MG TAB PO SCH (21:09)
[2017-05-09] VITALS (9 sets, daily range): BP systolic 136–157; BP diastolic 68–88; PULSE 67–80; RESP 18–23; TEMP 97.8–98.4; O2SAT 93–98
[2017-05-09] MEDS: SODIUM CHLOR 0.9% 1000 ML INJ 1,000 ML IV SCH ×3 (00:15→17:43)
[2017-05-09] MEDS: levETIRAcetam 500 MG TAB PO SCH ×3 (08:08→17:35)
[2017-05-09] MEDS: GABAPENTIN 300 MG CAP PO SCH ×4 (08:08→22:01)
[2017-05-09] MEDS: SODIUM CHLORIDE 0.9% FLUSH 10 ML FLUSH IV FLUSH SCH ×2 (08:08→21:00)
[2017-05-09] MEDS: DOCUSATE SODIUM 50 MG/SENNA 8.6 MG TAB PO SCH ×2 (08:08→22:01)
[2017-05-09] MEDS: amLODIPine BESYLATE 5 MG TAB PO SCH (08:08)
--- NOTE | 2017-05-09 10:34 | HHI.PR ---
Subjective Remarks no headaches, nausea or vomiting feels muscles- "slightly achy" Objective Vitals Vital Signs Date Time Temp Pulse Resp B/P (MAP) Pulse Ox O2 Delivery O2 Flow Rate FiO2 05/09/17 08:00 97.8 78 19 157/75 (102) 93 05/09/17 05:00 79 05/09/17 04:00 97.8 79 19 140/88 (105) 96 05/09/17 02:04 76 05/09/17 00:00 98.1 67 23 136/86 (103) 98 05/08/17 22:11 77 05/08/17 20:00 98.0 77 20 143/82 (102) 97 05/08/17 17:17 96 05/08/17 16:00 97.9 82 17 134/68 (90) 94 05/08/17 12:00 98.2 85 17 134/79 (97) 93 I/O 05/08/17 05/08/17 05/08/17 05/09/17 05/09/17 05/09/17 07:00 15:00 23:00 07:00 15:00 23:00 Intake Total 2080 ml 700 ml Balance 2080 ml 700 ml Intake Oral 1080 ml 700 ml IV Total 1000 ml # Voids 3 1 3 2 # Bowel Movements 1 1 Result Diagram: 05/07/17 0720 05/07/17 0720 Imaging Last Impressions Chest X-Ray 05/06/17 1444 Signed Impressions: Service Date/Time: April 14:57 - CONCLUSION: No acute cardiopulmonary disease identified. Fuentes Mcneil MD Knee X-Ray 05/06/17 0000 Signed Impressions: Service Date/Time: April 09:09 - CONCLUSION: Unremarkable examination of the right knee. Yovany Dumont Jr., MD Head CT 05/06/17 0000 Signed Impressions: Service Date/Time: April 08:57 - CONCLUSION: 1. Mild left frontal soft tissue swelling. 2. No acute intracranial abnormality. Yovany Dumont Jr., MD Objective Remarks awake and alert, oriented x 3, speech clear pupil equally reactive anicteric lungs clear regular rhythm abdomens soft, nontender extremities no edema no calf tenderness, no muscle swelling- non tender neuro exam- non focal A/P Problem List: (1) Seizure ICD Code: R56.9 - Convulsions Status: Chronic (2) Phenytoin toxicity ICD Code: T42.0X1A - Poisoning by hydantoin derivatives, accidental ( unintentional), initial encounter Status: Acute (3) Polysubstance abuse ICD Code: F19.10 - Other psychoactive substance abuse, uncomplicated Status: Acute Assessment and Plan 51-year-old female with history of seizures, anxiety, depression, hypertension, presents with 3 seizures in the past 24hours. Seizures: patient reports 3 seizures in past 24 hours. Suspect secondary to cocaine use. History of SZ disorder -Holding patient's dilantin - dilatin elevated- ff levels -Continue patient's Keppra -IV Ativan prn seizure -Monitor on telemetry -d/w her that cocaine and illicit drugs can lower seziure threshold- expressed understanding -Seizure/Fall precautions -No driving -Neurology ff Dilantin Toxicity: gradually trending down -hold patient's dilantin -monitor daily dilantin level PT consult - gait eval rhabdomyolysis seocndary to SZ and cocaine use Increase IVF rate ff Ck non oliguric Toxic Encephalopathy: patient with AMS while in the ER, appears to be more awake /alert.-RESOLved appears depressed Suspect secondary to polysubstance abuse, dilantin toxicity, and postictal state. -head CT images reviewed, shows mild left frontal soft tissue swelling; no acute intracranial abnormality -monitor neuro checks - Leukocytosis: WBC 21.2K. Suspect reactive secondary to seizures. Rule out infection. Afebrile. -CXR images reviewed, no acute findings. -check urinalysis- unremarkable -Give IVF hydration -Repeat CBC in am- trended down Hypertension: chronic, fairly well controlled -continue patient's Norvasc 5mg daily -monitor BP and adjust antihypertensives as needed Anxiety/Depression: chronic -continue patient's Citalopram, Mirtazapine, and Seroquel in better spirits Psychiatry consulted- - yesterday- was tearful and expressed thoughts of dying Lip Laceration: secondary to fall/seizure as above -s/p repair in the ER Left Frontal Hematoma: secondary to fall/seizure -ice pack to forehead -pain control prn Polysubstance Abuse: acute on chronic -UDS positive for cocaine and cannabinoids -strongly counseled on cessation DVT Prophylaxis: teds/SCDs; avoid chemoprophylaxis with recent head injury PTff- gait ambulation- doing well Problem Qualifiers (1) Phenytoin toxicity: Qualified Codes: T42.0X1A - Poisoning by hydantoin derivatives, accidental ( unintentional), initial encounter Augusto Mast MD May 09, 2017 10:34
[2017-05-09 13:10] LABS: BICARBONATE 25.3 MEQ/L (21.0-32.0); CALCIUM 8.1 MG/DL (8.5-10.1); CREATININE 0.55 MG/DL (0.50-1.00)
[2017-05-09 13:22] LABS: AUTOMATED NEUTROPHIL # 5.4 TH/MM3 (1.8-7.7); BASOPHIL # 0.1 TH/MM3 (0-0.2); BASOPHIL % 0.8 % (0.0-2.0); EOSINOPHIL # 0.3 TH/MM3 (0-0.4); EOSINOPHIL % 3.1 % (0.0-4.0); HEMATOCRIT 37.3 % (35.0-46.0); HEMOGLOBIN 12.5 GM/DL (11.6-15.3); LYMPH % 41.2 % (9.0-44.0); LYMPHOCYTE # 4.6 TH/MM3 (1.0-4.8); MEAN CELL VOLUME 91.4 FL (80.0-100.0); MEAN CORPUSCULAR HEMOGLOBIN 30.6 PG (27.0-34.0); MEAN CORPUSCULAR HGB CONC 33.4 % (32.0-36.0); MEAN PLATELET VOLUME 7.3 FL (7.0-11.0); MONOCYTE # 0.8 TH/MM3 (0-0.9); NEUT % 47.9 % (16.0-70.0); PLATELET COUNT 480 TH/MM3 (150-450); RED BLOOD COUNT 4.08 MIL/MM3 (4.00-5.30); RED CELL DISTRIBUTION WIDTH 16.3 % (11.6-17.2); WHITE BLOOD COUNT 11.2 TH/MM3 (4.0-11.0)
--- NOTE | 2017-05-09 13:23 | HHI.PR ---
Review/Management Daily Summary 05/09 dph 29 nystagmus and admits staggering when dilantin level around 20, resume dilantin Subjective Subjective Comments No acute events reported No headache No chest pain No dyspnea Active Medications Current Medications Medications (Trade) Dose Ordered Sig/Jarrett Route Start Time Stop Time Status Last Admin (NS Flush) 2 ml UNSCH PRN IVF 05/06/17 08:45 05/06/17 08:48 (Norvasc) 5 mg DAILY PO 05/07/17 09:00 05/09/17 08:08 (CeleXA) 40 mg HS PO 05/06/17 21:00 05/08/17 21:09 (Neurontin) 300 mg QID PO 05/06/17 18:00 05/09/17 12:25 (Keppra) 500 mg TID PO 05/06/17 18:00 05/09/17 12:25 (Remeron) 30 mg HS PO 05/06/17 21:00 05/08/17 21:08 (SEROquel) 300 mg HS PO 05/06/17 21:00 05/08/17 21:09 Sodium Chloride 1,000 ml @ 150 mls/hr Q6H40M IV 05/06/17 14:44 05/09/17 05:16 (NS Flush) 2 ml UNSCH PRN IV FLUSH 05/06/17 14:45 (NS Flush) 2 ml BID IV FLUSH 05/06/17 21:00 05/07/17 22:02 (Tylenol) 650 mg Q4H PRN PO 05/06/17 14:45 (Zofran Inj) 4 mg Q6H PRN IVP 05/06/17 14:45 (Tylenol) 650 mg Q6H PRN PO 05/06/17 14:45 05/07/17 12:57 (Narcan Inj) 0.4 mg UNSCH PRN IV PUSH 05/06/17 14:45 (Paula-Colace) 1 tab BID PO 05/06/17 21:00 05/09/17 08:08 (Milk Of Magnesia Liq) 30 ml Q12H PRN PO 05/06/17 14:45 (Senokot) 17.2 mg Q12H PRN PO 05/06/17 14:45 (Dulcolax Supp) 10 mg DAILY PRN RECTAL 05/06/17 14:45 (Lactulose Liq) 30 ml DAILY PRN PO 05/06/17 14:45 (Ativan Inj) 1 mg Q15M PRN IV PUSH 05/06/17 16:30 Allergies Allergies Coded Allergies No Known Allergies (Verified Allergy, Unknown, 05/06/17) Exam I&O / VS Vital Signs Date Time Temp Pulse Resp B/P (MAP) Pulse Ox O2 Delivery O2 Flow Rate FiO2 05/09/17 12:00 97.9 80 18 149/78 (101) 94 05/09/17 08:00 97.8 78 19 157/75 (102) 93 05/09/17 05:00 79 05/09/17 04:00 97.8 79 19 140/88 (105) 96 05/09/17 02:04 76 05/09/17 00:00 98.1 67 23 136/86 (103) 98 05/08/17 22:11 77 05/08/17 20:00 98.0 77 20 143/82 (102) 97 05/08/17 17:17 96 05/08/17 16:00 97.9 82 17 134/68 (90) 94 Objective Micro and Labs Laboratory Tests Test 05/09/17 12:20 05/09/17 12:40 Blood Urea Nitrogen 2 Creatinine 0.55 Random Glucose 67 Calcium Level 8.1 Sodium Level 139 Potassium Level 4.1 Chloride Level 108 Carbon Dioxide Level 25.3 Anion Gap 6 Estimat Glomerular Filtration Rate 140 Phenytoin (Dilantin) Level 29.9 White Blood Count 11.2 Red Blood Count 4.08 Hemoglobin 12.5 Hematocrit 37.3 Mean Corpuscular Volume 91.4 Mean Corpuscular Hemoglobin 30.6 Mean Corpuscular Hemoglobin Concent 33.4 Red Cell Distribution Width 16.3 Platelet Count 480 Mean Platelet Volume 7.3 Neutrophils (%) (Auto) 47.9 Lymphocytes (%) (Auto) 41.2 Monocytes (%) (Auto) 7.0 Eosinophils (%) (Auto) 3.1 Basophils (%) (Auto) 0.8 Neutrophils # (Auto) 5.4 Lymphocytes # (Auto) 4.6 Monocytes # (Auto) 0.8 Eosinophils # (Auto) 0.3 Basophils # (Auto) 0.1 CBC Comment DIFF FINAL Differential Comment Donny Rizzo MD May 09, 2017 13:23
[2017-05-09] MEDS: QUEtiapine FUMARATE 300 MG TAB PO SCH (22:01)
[2017-05-09] MEDS: MIRTAZAPINE 15 MG TAB PO SCH (22:01)
[2017-05-09] MEDS: CITALOPRAM HYDROBROMIDE 40 MG TAB PO SCH (22:01)
[2017-05-10] VITALS (11 sets, daily range): BP systolic 135–166; BP diastolic 65–85; PULSE 66–80; RESP 17–21; TEMP 97.7–98.9; O2SAT 95–97
[2017-05-10] MEDS: amLODIPine BESYLATE 5 MG TAB PO SCH (08:36)
[2017-05-10] MEDS: GABAPENTIN 300 MG CAP PO SCH ×4 (08:36→22:45)
[2017-05-10] MEDS: levETIRAcetam 500 MG TAB PO SCH ×3 (08:36→17:58)
[2017-05-10] MEDS: DOCUSATE SODIUM 50 MG/SENNA 8.6 MG TAB PO SCH ×2 (08:37→22:44)
[2017-05-10] MEDS: ACETAMINOPHEN 325 MG TAB PO PRN (08:37)
[2017-05-10] MEDS: SODIUM CHLORIDE 0.9% FLUSH 10 ML FLUSH IV FLUSH SCH ×2 (08:38→22:45)
[2017-05-10] MEDS: SODIUM CHLOR 0.9% 1000 ML INJ 1,000 ML IV SCH ×2 (08:38→17:59)
[2017-05-10 11:34] LABS: PHENYTOIN (DILANTIN) 25.9 MCG/ML (10.0-20.0)
--- NOTE | 2017-05-10 13:07 | HHI.PR ---
Subjective Remarks ambulated better with a walker no complains no headaches good po Objective Vitals Vital Signs Date Time Temp Pulse Resp B/P (MAP) Pulse Ox O2 Delivery O2 Flow Rate FiO2 05/10/17 12:05 98.7 79 20 166/85 (112) 97 05/10/17 10:54 96 21 05/10/17 09:40 20 05/10/17 07:53 98.1 75 19 150/76 (100) 97 05/10/17 04:00 98.0 66 19 135/65 (88) 96 05/10/17 00:30 97.7 69 21 140/67 (91) 95 05/09/17 20:20 21 05/09/17 20:00 98.3 68 21 143/76 (98) 96 05/09/17 20:00 75 05/09/17 16:00 98.4 79 19 138/68 (91) 96 05/09/17 16:00 78 I/O 05/09/17 05/09/17 05/09/17 05/10/17 05/10/17 05/10/17 07:00 15:00 23:00 07:00 15:00 23:00 Intake Total 700 ml 2960 ml 100 ml 1000 ml Balance 700 ml 2960 ml 100 ml 1000 ml Intake Oral 700 ml 1960 ml 100 ml IV Total 1000 ml 1000 ml # Voids 2 4 6 # Bowel Movements 1 1 2 Result Diagram: 05/09/17 1240 05/09/17 1220 Imaging Last Impressions Chest X-Ray 05/06/17 1444 Signed Impressions: Service Date/Time: April 14:57 - CONCLUSION: No acute cardiopulmonary disease identified. Fuentes Mcneil MD Knee X-Ray 05/06/17 0000 Signed Impressions: Service Date/Time: April 09:09 - CONCLUSION: Unremarkable examination of the right knee. Yovany Dumont Jr., MD Head CT 05/06/17 0000 Signed Impressions: Service Date/Time: April 08:57 - CONCLUSION: 1. Mild left frontal soft tissue swelling. 2. No acute intracranial abnormality. Yovany Dumont Jr., MD Objective Remarks awake and alert, oriented x 3, speech clear pupil equally reactive anicteric lungs clear regular rhythm abdomens soft, nontender extremities no edema no calf tenderness, no muscle swelling- non tender, moves all extremities 5/5 neuro exam- non focal A/P Problem List: (1) Seizure ICD Code: R56.9 - Convulsions Status: Chronic (2) Phenytoin toxicity ICD Code: T42.0X1A - Poisoning by hydantoin derivatives, accidental ( unintentional), initial encounter Status: Acute (3) Polysubstance abuse ICD Code: F19.10 - Other psychoactive substance abuse, uncomplicated Status: Acute Assessment and Plan 51-year-old female with history of seizures, anxiety, depression, hypertension, presents with 3 seizures in the past 24hours. Seizures: patient reports 3 seizures in past 24 hours. Suspect secondary to cocaine use. History of SZ disorder -Holding patient's dilantin - dilatin elevated- ff levels- 25- trending down -Continue patient's Keppra -IV Ativan prn seizure -Monitor on telemetry -d/w her that cocaine and illicit drugs can lower seziure threshold- expressed understanding -Seizure/Fall precautions -No driving -Neurology ff Dilantin Toxicity: gradually trending down 25 -hold patient's dilantin -monitor daily dilantin level- per neurology- restart when level less than 20 PT- ff- walker rhabdomyolysis seocndary to SZ and cocaine use CK now normal non oliguric Toxic Encephalopathy: patient with AMS while in the ER, appears to be more awake /alert.-RESOLved appears depressed Suspect secondary to polysubstance abuse, dilantin toxicity, and postictal state. -head CT images reviewed, shows mild left frontal soft tissue swelling; no acute intracranial abnormality -monitor neuro checks - Leukocytosis: WBC 21.2K. Suspect reactive secondary to seizures. Rule out infection. Afebrile. -CXR images reviewed, no acute findings. -check urinalysis- unremarkable -Give IVF hydration -Repeat CBC in am- trended down Hypertension: chronic, fairly well controlled -continue patient's Norvasc 5mg daily -monitor BP and adjust antihypertensives as needed Anxiety/Depression: chronic -continue patient's Citalopram, Mirtazapine, and Seroquel in better spirits Psychiatry consulted- - yesterday- was tearful and expressed thoughts of dying Lip Laceration: secondary to fall/seizure as above -s/p repair in the ER Left Frontal Hematoma: secondary to fall/seizure -ice pack to forehead -pain control prn Polysubstance Abuse: acute on chronic -UDS positive for cocaine and cannabinoids -strongly counseled on cessation DVT Prophylaxis: teds/SCDs; avoid chemoprophylaxis with recent head injury PTff- gait ambulation- doing well with walker instruct to get up and have emals on chair Problem Qualifiers (1) Phenytoin toxicity: Qualified Codes: T42.0X1A - Poisoning by hydantoin derivatives, accidental ( unintentional), initial encounter Augusto Mast MD May 10, 2017 13:07
[2017-05-10] MEDS ORDERED: diphenhydrAMINE HCL 25 MG CAP PO ONE (22:15)
[2017-05-10] MEDS: QUEtiapine FUMARATE 300 MG TAB PO SCH (22:44)
[2017-05-10] MEDS: MIRTAZAPINE 15 MG TAB PO SCH (22:45)
[2017-05-10] MEDS: CITALOPRAM HYDROBROMIDE 40 MG TAB PO SCH (22:45)
[2017-05-11] VITALS (9 sets, daily range): BP systolic 139–166; BP diastolic 67–94; PULSE 72–85; RESP 17–18; TEMP 97.7–98.9; O2SAT 94–97
[2017-05-11] MEDS: SODIUM CHLOR 0.9% 1000 ML INJ 1,000 ML IV SCH ×2 (05:38→14:59)
[2017-05-11] MEDS: GABAPENTIN 300 MG CAP PO SCH ×4 (08:35→23:07)
[2017-05-11] MEDS: SODIUM CHLORIDE 0.9% FLUSH 10 ML FLUSH IV FLUSH SCH ×2 (08:35→23:08)
[2017-05-11] MEDS: levETIRAcetam 500 MG TAB PO SCH ×3 (08:36→17:58)
[2017-05-11] MEDS: DOCUSATE SODIUM 50 MG/SENNA 8.6 MG TAB PO SCH ×2 (08:36→23:07)
[2017-05-11 08:39] LABS: BICARBONATE 29.1 MEQ/L (21.0-32.0); CALCIUM 8.9 MG/DL (8.5-10.1); CREATININE 0.71 MG/DL (0.50-1.00); PHENYTOIN (DILANTIN) 20.2 MCG/ML (10.0-20.0)
[2017-05-11] MEDS: amLODIPine BESYLATE 5 MG TAB PO SCH (08:39)
--- NOTE | 2017-05-11 10:08 | HHI.PR ---
Subjective Remarks complains of lower lip pain no headaches, nausea or vomiting no dizziness Objective Vitals Vital Signs Date Time Temp Pulse Resp B/P (MAP) Pulse Ox O2 Delivery O2 Flow Rate FiO2 05/11/17 08:29 97.9 77 18 139/67 (91) 97 05/11/17 04:40 76 05/11/17 04:27 97.7 72 17 145/81 (102) 96 05/11/17 00:10 97.9 75 17 159/67 (97) 95 05/11/17 00:00 76 05/10/17 20:10 98.9 66 17 145/79 (101) 97 05/10/17 20:00 72 05/10/17 16:00 77 05/10/17 15:56 97.7 78 20 142/73 (96) 95 05/10/17 12:05 98.7 79 20 166/85 (112) 97 05/10/17 12:00 73 05/10/17 10:54 96 21 I/O 05/10/17 05/10/17 05/10/17 05/11/17 05/11/17 05/11/17 07:00 15:00 23:00 07:00 15:00 23:00 Intake Total 100 ml 1000 ml 1720 ml 1243 ml 298 ml Balance 100 ml 1000 ml 1720 ml 1243 ml 298 ml Intake Oral 100 ml 720 ml 240 ml IV Total 1000 ml 1000 ml 1003 ml 298 ml # Voids 6 3 3 # Bowel Movements 2 Result Diagram: 05/09/17 1240 05/11/17 0741 Imaging Last Impressions Chest X-Ray 05/06/17 1444 Signed Impressions: Service Date/Time: April 14:57 - CONCLUSION: No acute cardiopulmonary disease identified. Fuentes Mcneil MD Knee X-Ray 05/06/17 0000 Signed Impressions: Service Date/Time: April 09:09 - CONCLUSION: Unremarkable examination of the right knee. Yovany Dumont Jr., MD Head CT 05/06/17 0000 Signed Impressions: Service Date/Time: April 08:57 - CONCLUSION: 1. Mild left frontal soft tissue swelling. 2. No acute intracranial abnormality. Yovany Dumont Jr., MD Objective Remarks awake and alert, oriented x 3, speech clear pupil equally reactive lower lip= dry superficial skin brakdown anicteric lungs clear regular rhythm abdomens soft, nontender extremities no edema no calf tenderness, no muscle swelling- non tender, moves all extremities 5/5 neuro exam- non focal A/P Problem List: (1) Seizure ICD Code: R56.9 - Convulsions Status: Chronic (2) Phenytoin toxicity ICD Code: T42.0X1A - Poisoning by hydantoin derivatives, accidental ( unintentional), initial encounter Status: Acute (3) Polysubstance abuse ICD Code: F19.10 - Other psychoactive substance abuse, uncomplicated Status: Acute Assessment and Plan 51-year-old female with history of seizures, anxiety, depression, hypertension, presents with 3 seizures in the past 24hours. Seizures: patient reports 3 seizures in past 24 hours. Suspect secondary to cocaine use. History of SZ disorder -Holding patient's dilantin - dilatin elevated- ff levels- 25- trending down - now 20.2 recheck in am- -Continue patient's Keppra -IV Ativan prn seizure -Monitor on telemetry -d/w her that cocaine and illicit drugs can lower seziure threshold- expressed understanding -Seizure/Fall precautions -No driving -Neurology ff Dilantin Toxicity: gradually trending down - 20.2 today -hold patient's dilantin -monitor daily dilantin level- per neurology- restart when level less than 20 in am PT- ff- walker rhabdomyolysis- resolved secondary to SZ and cocaine use CK now normal non oliguric Toxic Encephalopathy: patient with AMS while in the ER, appears to be more awake /alert.-RESOLved appears depressed Suspect secondary to polysubstance abuse, dilantin toxicity, and postictal state. -head CT images reviewed, shows mild left frontal soft tissue swelling; no acute intracranial abnormality -monitor neuro checks - Leukocytosis: WBC 21.2K. Suspect reactive secondary to seizures. Rule out infection. Afebrile. -CXR images reviewed, no acute findings. -check urinalysis- unremarkable -Give IVF hydration -Repeat CBC in am- trended down Hypertension: chronic, fairly well controlled -continue patient's Norvasc 5mg daily -monitor BP and adjust antihypertensives as needed Anxiety/Depression: chronic- feeling better -continue patient's Citalopram, Mirtazapine, and Seroquel in better spirits Psychiatry consulted- - Lip Laceration: secondary to fall/seizure as above -s/p repair in the ER - start some lip moisturizer Left Frontal Hematoma: secondary to fall/seizure -ice pack to forehead -pain control prn Polysubstance Abuse: acute on chronic -UDS positive for cocaine and cannabinoids -strongly counseled on cessation DVT Prophylaxis: teds/SCDs; avoid chemoprophylaxis with recent head injury PTff- gait ambulation- doing well with walker instruct to get up and have meals on chair DC planning- Problem Qualifiers (1) Phenytoin toxicity: Qualified Codes: T42.0X1A - Poisoning by hydantoin derivatives, accidental ( unintentional), initial encounter Augusto Mast MD May 11, 2017 10:08
[2017-05-11] MEDS: DIMETHICONE/OXYBENZONE/PADMIATE LIP BALM 4.25 GM TOPICAL SCH ×2 (12:28→14:53)
[2017-05-11] MEDS ORDERED: DIMETHICONE/OXYBENZONE/PADMIATE LIP BALM 4.25 GM TOPICAL PRN (16:15)
--- NOTE | 2017-05-11 20:51 | HHI.PR ---
Review/Management Daily Summary 05/09 dph 29 nystagmus and admits staggering when dilantin level around 20, resume dilantin 05/11 doing well probably baseline in good spirits and alert/oriented resume dilantin 100 tid and continue to follow leves d/c soon from neuro point of view Subjective Subjective Comments No acute events reported No headache No chest pain No dyspnea Active Medications Current Medications Medications (Trade) Dose Ordered Sig/Jarrett Route Start Time Stop Time Status Last Admin (NS Flush) 2 ml UNSCH PRN IVF 05/06/17 08:45 05/06/17 08:48 (Norvasc) 5 mg DAILY PO 05/07/17 09:00 05/11/17 08:39 (CeleXA) 40 mg HS PO 05/06/17 21:00 05/10/17 22:45 (Neurontin) 300 mg QID PO 05/06/17 18:00 05/11/17 17:58 (Keppra) 500 mg TID PO 05/06/17 18:00 05/11/17 17:58 (Remeron) 30 mg HS PO 05/06/17 21:00 05/10/17 22:45 (SEROquel) 300 mg HS PO 05/06/17 21:00 05/10/17 22:44 Sodium Chloride 1,000 ml @ 100 mls/hr Q10H IV 05/06/17 14:44 05/11/17 05:38 (NS Flush) 2 ml UNSCH PRN IV FLUSH 05/06/17 14:45 (NS Flush) 2 ml BID IV FLUSH 05/06/17 21:00 05/11/17 08:35 (Tylenol) 650 mg Q4H PRN PO 05/06/17 14:45 (Zofran Inj) 4 mg Q6H PRN IVP 05/06/17 14:45 (Tylenol) 650 mg Q6H PRN PO 05/06/17 14:45 05/10/17 08:37 (Narcan Inj) 0.4 mg UNSCH PRN IV PUSH 05/06/17 14:45 (Paula-Colace) 1 tab BID PO 05/06/17 21:00 05/11/17 08:36 (Milk Of Magnesia Liq) 30 ml Q12H PRN PO 05/06/17 14:45 (Senokot) 17.2 mg Q12H PRN PO 05/06/17 14:45 (Dulcolax Supp) 10 mg DAILY PRN RECTAL 05/06/17 14:45 (Lactulose Liq) 30 ml DAILY PRN PO 05/06/17 14:45 (Ativan Inj) 1 mg Q15M PRN IV PUSH 05/06/17 16:30 (Blistex Lip Stacy) 1 applic BID PRN TOPICAL 05/11/17 16:15 Allergies Allergies Coded Allergies No Known Allergies (Verified Allergy, Unknown, 05/06/17) Exam I&O / VS 05/11/17 05/11/17 05/12/17 15:00 23:00 07:00 Intake Total 298 ml 480 ml Balance 298 ml 480 ml Intake Oral 480 ml IV Total 298 ml # Voids 3 Vital Signs Date Time Temp Pulse Resp B/P (MAP) Pulse Ox O2 Delivery O2 Flow Rate FiO2 05/11/17 20:00 98.0 85 17 166/94 (118) 97 05/11/17 15:48 98.9 79 18 153/81 (105) 97 05/11/17 13:01 98.3 81 18 139/80 (99) 94 05/11/17 08:29 97.9 77 18 139/67 (91) 97 05/11/17 08:00 79 05/11/17 04:40 76 05/11/17 04:27 97.7 72 17 145/81 (102) 96 05/11/17 00:10 97.9 75 17 159/67 (97) 95 05/11/17 00:00 76 Objective Micro and Labs Laboratory Tests Test 05/11/17 07:41 Blood Urea Nitrogen 6 Creatinine 0.71 Random Glucose 97 Calcium Level 8.9 Sodium Level 138 Potassium Level 3.8 Chloride Level 105 Carbon Dioxide Level 29.1 Anion Gap 4 Estimat Glomerular Filtration Rate 105 Total Creatine Kinase 124 Phenytoin (Dilantin) Level 20.2 Donny Rizzo MD May 11, 2017 20:51
[2017-05-11] MEDS ORDERED: diphenhydrAMINE HCL 25 MG CAP PO ONE (22:15)
[2017-05-11] MEDS: MIRTAZAPINE 15 MG TAB PO SCH (23:06)
[2017-05-11] MEDS: CITALOPRAM HYDROBROMIDE 40 MG TAB PO SCH (23:07)
[2017-05-11] MEDS: QUEtiapine FUMARATE 300 MG TAB PO SCH (23:07)
[2017-05-11] MEDS: PHENYTOIN SODIUM 100 MG CAP PO SCH (23:07)
[2017-05-12 00:02] VITALS: BP 160/70; PULSE 73; RESP 17; TEMP 97.7; O2SAT 97
[2017-05-12 00:42] VITALS: BP 136/81; PULSE 76; RESP 18; TEMP 96.8; O2SAT 97
[2017-05-12] MEDS: SODIUM CHLOR 0.9% 1000 ML INJ 1,000 ML IV SCH ×2 (01:30→11:00)
[2017-05-12 04:38] VITALS: BP 139/74; PULSE 80; RESP 17; TEMP 97.8; O2SAT 97
[2017-05-12] MEDS: PHENYTOIN SODIUM 100 MG CAP PO SCH ×2 (06:47→13:04)
[2017-05-12] MEDS: ACETAMINOPHEN 325 MG TAB PO PRN ×2 (06:51→13:04)
[2017-05-12 08:00] VITALS: PULSE 79
[2017-05-12 08:33] VITALS: BP 143/75; PULSE 81; RESP 18; TEMP 98; O2SAT 96
[2017-05-12] MEDS: amLODIPine BESYLATE 5 MG TAB PO SCH (09:45)
[2017-05-12] MEDS: levETIRAcetam 500 MG TAB PO SCH ×2 (09:46→13:04)
[2017-05-12] MEDS: GABAPENTIN 300 MG CAP PO SCH ×2 (09:46→13:04)
[2017-05-12] MEDS: DOCUSATE SODIUM 50 MG/SENNA 8.6 MG TAB PO SCH (09:46)
[2017-05-12] MEDS: SODIUM CHLORIDE 0.9% FLUSH 10 ML FLUSH IV FLUSH SCH (09:46)
[2017-05-12] MEDS ORDERED: WALKER WHEELS/F1 MIS (12:00)
[2017-05-12 12:29] VITALS: BP 145/76; PULSE 80; RESP 18; TEMP 98.2; O2SAT 94
== END 2017-05-12 14:49 | disposition home or self-care (01) | DRG 100 ==
LOC: NEPC 07:41 → NEDA 14:53 → N05B 18:56
PROVIDERS: ADMIT Hospitalist; ATTEND Hospitalist
PROC: 0CQ1XZZ Repair Lower Lip, External Approach (ICD-10-PCS; principal; 2017-05-06)
DX: G40.909 Epilepsy, unspecified, not intractable, without status epilepticus (principal); G92 Toxic encephalopathy; M62.82 Rhabdomyolysis; D72.829 Elevated white blood cell count, unspecified; S01.511A Laceration without foreign body of lip, initial encounter; I10 Essential (primary) hypertension; T42.0X5A Adverse effect of hydantoin derivatives, initial encounter; S00.83XA Contusion of other part of head, initial encounter; H55.00 Unspecified nystagmus; F12.188 Cannabis abuse with other cannabis-induced disorder; F14.14 Cocaine abuse with cocaine-induced mood disorder; W18.30XA Fall on same level, unspecified, initial encounter; F41.9 Anxiety disorder, unspecified; F32.9 Major depressive disorder, single episode, unspecified; Z91.19 Patient's noncompliance with other medical treatment and regimen
CPT/HCPCS: 12011; 70450; 71045; 73564; 80048; 80053; 80185; 80307; 81001; 82550; 82552; 85025; 95819; 96374; J2060; J7030

== ENCOUNTER 2017-05-29 22:56 | Emergency (ER) | payer MEDICARE, MEDICAID ==
[~2017-05-29] VITALS: Ht 160 cm; Wt 75.0 kg
[~2017-05-29 22:56] MED LIST changes: -1-ME1LIQ PO; +AMLO5 PO; -CITA40 PO; +CITA40TA4 PO; +DILA100C PO; -GABA300C3 PO; +GABA300C5 PO; -KEPP1000 PO; -LEVE250 PO; +LEVE500T8 PO; +MIRT30TA PO; +QUET1TAB10 PO; -REME15TA PO; -RISP3TAB23 PO; -VITA100T55 PO; +WALKER WHEELS/F1 MIS
[2017-05-29 23:05] VITALS: BP 124/58; PULSE 79; RESP 24; TEMP 98.6; O2SAT 97
[2017-05-29] MEDS ORDERED: LORazepam 2 MG/ML VIAL IVS PRN (23:45)
[2017-05-29] MEDS ORDERED: SODIUM CHLORIDE 0.9% FLUSH 10 ML FLUSH IVF PRN (23:45)
--- NOTE | 2017-05-30 00:10 | PD ---
HPI . Seizure Chief Complaint: Seizure Time Seen by Provider: 23:24 Travel History International Travel<30 days: No Contact w/Intl Traveler<30days: No Traveled to known affect area: No History of Present Illness HPI Patient presents to us by [facility] status post a seizure at home. She has a known seizure disorder. She states that she is compliant with her medications. She hit her forehead during the seizure. She denies any other injuries. She is unsure as to what may have caused the seizure. She is now back to baseline neurologically. PFSH Past Medical History Arthritis: No Asthma: No Autoimmune Disease: No Blood Disorders: No Anxiety: Yes Depression: Yes Heart Rhythm Problems: No Cancer: No Cardiovascular Problems: Yes High Cholesterol: No Chemotherapy: No Chest Pain: No Congestive Heart Failure: No COPD: No Cerebrovascular Accident: No Diabetes: No Diminished Hearing: No Endocrine: No Gastrointestinal Disorders: No Genitourinary: No Headaches: Yes Hypertension: Yes Immune Disorder: No Implanted Vascular Access Dvce: No Musculoskeletal: No Neurologic: Yes Psychiatric: Yes Reproductive: No Respiratory: No Immunizations Current: Yes Migraines: Yes Radiation Therapy: No Seizures: Yes Sleep Apnea: No Thyroid Disease: No PNEUMOCCOCAL Vaccine (Year): 2 ?: Not Menopausal: Yes : 2 Para: 2 Miscarriage: 0 : 0 Tubal Ligation: Yes Past Surgical History Abdominal Surgery: No Cardiac Surgery: No Ear Surgery: No Endocrine Surgery: No Eye Surgery: No Genitourinary Surgery: No Gynecologic Surgery: Yes (TUBAL LIGATION) Neurologic Surgery: No Oral Surgery: No Thoracic Surgery: No Other Surgery: No (pt denies history of surgury) Social History Alcohol Use: No Tobacco Use: No Substance Use: No (PT DENIES) Allergies-Medications (Allergen,Severity, Reaction): Coded Allergies: No Known Allergies (Verified Allergy, Unknown, 05/29/17) Reported Meds & Prescriptions Reported Meds & Active Scripts Active Walker with Front Wheels (Device) 1 Mis Mis Ea .XX DIRECTED Reported Gabapentin 300 Mg Cap 300 Mg PO QID Norvasc (Amlodipine Besylate) 5 Mg Tab 5 Mg PO DAILY Dilantin (Phenytoin Extended) 100 Mg Cap 100 Mg PO TID Quetiapine (Quetiapine Fumarate) 300 Mg Tab 300 Mg PO HS Levetiracetam 500 Mg Tab 500 Mg PO TID Citalopram (Citalopram Hydrobromide) 40 Mg Tab 40 Mg PO HS Mirtazapine 30 Mg Tab 30 Mg PO HS Review of Systems Except as stated in HPI: all other systems reviewed are Neg HENT: Positive: Headaches Neurologic: Positive: Seizures Physical Exam Narrative GENERAL: Awake and alert and in no acute distress. SKIN: Warm and dry. HEAD:. Contusion to the right forehead. EYES: Pupils are equal. Extraocular movements are intact. NECK: Normal range of motion. Nontender. CARDIOVASCULAR: Regular rate and rhythm. RESPIRATORY: Nonlabored respirations. MUSCULOSKELETAL: Atraumatic. NEUROLOGICAL: A and O 3. Cranial nerves II through XII grossly intact. She is moving all 4 extremities equally. Speech is normal. PSYCHIATRIC: Appropriate mood and affect. Data Data Last Documented VS Vital Signs Date Time Temp Pulse Resp B/P (MAP) Pulse Ox O2 Delivery O2 Flow Rate FiO2 05/29/17 23:05 98.6 79 24 124/58 (80) 97 Orders Orders Complete Blood Count With Diff (05/29/17 23:36) Basic Metabolic Panel (Bmp) (05/29/17 23:36) Phenytoin (Dilantin) (05/29/17 23:36) Drug Screen, Random Urine (05/29/17 23:36) Ct Brain W/O Iv Contrast(Rout) (05/29/17 ) Blood Glucose (05/29/17 23:36) Ecg Monitoring (05/29/17 23:36) Iv Access Insert/Monitor (05/29/17 23:36) Oximetry (05/29/17 23:36) Sodium Chloride 0.9% Flush (Ns Flush) (05/29/17 23:45) Lorazepam Inj (Ativan Inj) (05/29/17 23:45) Labs Laboratory Tests Test 05/29/17 23:45 05/29/17 23:46 White Blood Count 15.3 TH/MM3 Red Blood Count 4.04 MIL/MM3 Hemoglobin 12.2 GM/DL Hematocrit 36.4 % Mean Corpuscular Volume 90.1 FL Mean Corpuscular Hemoglobin 30.2 PG Mean Corpuscular Hemoglobin Concent 33.5 % Red Cell Distribution Width 16.4 % Platelet Count 540 TH/MM3 Mean Platelet Volume 7.6 FL Neutrophils (%) (Auto) 70.4 % Lymphocytes (%) (Auto) 21.1 % Monocytes (%) (Auto) 7.7 % Eosinophils (%) (Auto) 0.5 % Basophils (%) (Auto) 0.3 % Neutrophils # (Auto) 10.7 TH/MM3 Lymphocytes # (Auto) 3.2 TH/MM3 Monocytes # (Auto) 1.2 TH/MM3 Eosinophils # (Auto) 0.1 TH/MM3 Basophils # (Auto) 0.0 TH/MM3 CBC Comment DIFF FINAL Differential Comment Blood Urea Nitrogen 4 MG/DL Creatinine 0.84 MG/DL Random Glucose 123 MG/DL Calcium Level 8.2 MG/DL Sodium Level 139 MEQ/L Potassium Level 3.7 MEQ/L Chloride Level 106 MEQ/L Carbon Dioxide Level 25.1 MEQ/L Anion Gap 8 MEQ/L Estimat Glomerular Filtration Rate 86 ML/MIN Phenytoin (Dilantin) Level 39.5 MCG/ML Urine Opiates Screen NEG Urine Barbiturates Screen NEG Urine Amphetamines Screen NEG Urine Benzodiazepines Screen NEG Urine Cocaine Screen NEG Urine Cannabinoids Screen NEG MDM Medical Decision Making Medical Screen Exam Complete: Yes Emergency Medical Condition: Yes Medical Record Reviewed: Yes (patient was admitted here in April with similar symptoms. She was found to be Dilantin toxic. She also had a drug screen positive for cocaine.) Differential Diagnosis Differential diagnosis of seizure includes but is not limited to epilepsy, electrolyte abnormality, previous stroke, closed head injury Narrative Course This patient presents to us status post a seizure. She did hit her head. She has a history of Dilantin toxicity as well as cocaine abuse. I have ordered a Dilantin level as well as a drug screen. CT has been ordered to evaluate the contusion to her forehead. She has an order for Ativan as needed for seizures. CBC & BMP Diagram 05/29/17 23:45 Calcium Level 8.2 L Dilantin level 39.[address] is negative for acute findings. Her drug screen is negative. I will have her hold her Dilantin for the weekend. She should follow-up with her doctor on Wednesday for recheck. Diagnosis Primary Impression: Seizure Additional Impressions: Phenytoin toxicity Qualified Codes: T42.0X1A - Poisoning by hydantoin derivatives, accidental ( unintentional), initial encounter Forehead contusion Qualified Codes: S00.83XA - Contusion of other part of head, initial encounter Patient Instructions: Dilantin Toxicity (ED), General Instructions, Recurrent Seizures in Adults (DC), Scalp Contusion in Adults (ED) Additional Instructions: Stop your Dilantin for now. See your doctor Wednesday to have your level rechecked. Disposition: 01 DISCHARGE HOME Condition: Stable Yuridia Tolbert MD May 30, 2017 00:10
--- NOTE | 2017-05-30 00:17 | RADRPT ---
EXAM DATE/TIME: 05/30/2017 00:00 [facility] COMPARISON: No previous studies available for comparison. INDICATIONS : Trauma; possible seizure. RADIATION DOSE: 36.66 CTDIvol (mGy) MEDICAL HISTORY : Seizures. Hypertension. SURGICAL HISTORY : Tubal ligation. ENCOUNTER: Initial ACUITY: 1 day PAIN SCALE: 3/10 LOCATION: cranial TECHNIQUE: Multiple contiguous axial images were obtained of the head. Using automated exposure control and adj ustment of the mA and/or kV according to patient size, radiation dose was kept as low as reasonably a chievable to obtain optimal diagnostic quality images. DICOM format image data is available electro nically for review and comparison. FINDINGS: CEREBRUM: The ventricles are normal for age. No evidence of midline shift, mass lesion, hemorrhage or acute in farction. No extra-axial fluid collections are seen. POSTERIOR FOSSA: The cerebellum and brainstem are intact. The 4th ventricle is midline. The cerebellopontine angle i s unremarkable. EXTRACRANIAL: The visualized portion of the orbits is intact. SKULL: The calvaria is intact. No evidence of skull fracture. CONCLUSION: 1. No acute intracranial abnormalities. Demar Funes MD on May 30, 2017 at 0:12 Board Certified Radiologist. This report was verified electronically.
[2017-05-30 00:18] LABS: AUTOMATED NEUTROPHIL # 10.7 TH/MM3 (1.8-7.7); BASOPHIL % 0.3 % (0.0-2.0); EOSINOPHIL # 0.1 TH/MM3 (0-0.4); EOSINOPHIL % 0.5 % (0.0-4.0); HEMATOCRIT 36.4 % (35.0-46.0); HEMOGLOBIN 12.2 GM/DL (11.6-15.3); LYMPH % 21.1 % (9.0-44.0); LYMPHOCYTE # 3.2 TH/MM3 (1.0-4.8); MEAN CELL VOLUME 90.1 FL (80.0-100.0); MEAN CORPUSCULAR HEMOGLOBIN 30.2 PG (27.0-34.0); MEAN CORPUSCULAR HGB CONC 33.5 % (32.0-36.0); MEAN PLATELET VOLUME 7.6 FL (7.0-11.0); MONO % 7.7 % (0.0-8.0); MONOCYTE # 1.2 TH/MM3 (0-0.9); NEUT % 70.4 % (16.0-70.0); PLATELET COUNT 540 TH/MM3 (150-450); RED BLOOD COUNT 4.04 MIL/MM3 (4.00-5.30); RED CELL DISTRIBUTION WIDTH 16.4 % (11.6-17.2); WHITE BLOOD COUNT 15.3 TH/MM3 (4.0-11.0)
[2017-05-30 00:34] LABS: BICARBONATE 25.1 MEQ/L (21.0-32.0); CALCIUM 8.2 MG/DL (8.5-10.1); CREATININE 0.84 MG/DL (0.50-1.00)
[2017-05-30 00:40] LABS: PHENYTOIN (DILANTIN) 39.5 MCG/ML (10.0-20.0)
== END 2017-05-30 02:15 | disposition home or self-care (01) ==
LOC: NEPE 22:56
DX: R56.9 Unspecified convulsions (principal); T42.0X5A Adverse effect of hydantoin derivatives, initial encounter; S00.83XA Contusion of other part of head, initial encounter; W22.8XXA Striking against or struck by other objects, initial encounter; F41.9 Anxiety disorder, unspecified; F32.9 Major depressive disorder, single episode, unspecified; I10 Essential (primary) hypertension
CPT/HCPCS: 70450; 80048; 80185; 80307; 85025; 99283

== ENCOUNTER 2017-06-17 19:02 | Observation (INO) | payer MEDICARE, MEDICAID ==
[~2017-06-17] VITALS: Ht 160 cm; Wt 75.0 kg
[2017-06-17 20:00] VITALS: BP 115/67; PULSE 82; RESP 18; TEMP 97.9; O2SAT 99
[2017-06-17 20:57] VITALS: BP 115/77; PULSE 94; RESP 20; TEMP 98; O2SAT 98
[2017-06-17] MEDS ORDERED: RISP3 PO (20:57)
[2017-06-17] MEDS ORDERED: LAMO25 PO (20:57)
[2017-06-17] MEDS ORDERED: SODIUM CHLOR 0.9% 1000 ML INJ 1,000 ML IV ONE (21:15)
[2017-06-17] MEDS ORDERED: PROPARACAINE HCL 0.5% OPHT SOLN 15 ML BTL LEFT EYE ONE (21:15)
[2017-06-17] MEDS ORDERED: SODIUM CHLORIDE 0.9% FLUSH 10 ML FLUSH IVF PRN (21:15)
--- NOTE | 2017-06-17 21:49 | PD ---
HPI Chief Complaint: Fall Time Seen by Provider: 21:12 Travel History International Travel<30 days: No Contact w/Intl Traveler<30days: No Traveled to known affect area: No History of Present Illness HPI 51-year-old female with history of seizure disorder. Patient reports that she has not felt well for 3 weeks and has decreased her dosage of anticonvulsant therapy as the medicine has made her drowsy. Patient has had seizures and has had issues with vision and pain in her left eye. Patient states she also had a seizure last evening and thinks she may have hit her face and so she is now having worsening left eye discomfort. Patient states she has had difficulty seeing out of her left eye for the past 3 weeks. Patient states that she did bite her lip last evening with her seizure and typically has urinary incontinence. Patient denies any substance use. Patient is frequently seen in the emergency department for issues with her seizure disorder. Patient has episodes of toxicity of her anticonvulsant therapy as she takes too much has breakthrough seizure as she is subtherapeutic with her anticonvulsant therapy and then has breakthrough seizures due to substance use. Patient states that she has had no nausea no vomiting no chest pain no shortness of breath no abdominal pain and has sustained no injury except for some time during the past 3 weeks she injured her left eye. Patient states last evening she injured her face. PFSH Past Medical History Narrative Medical Anxiety depression seizure disorder headache hypertension prior substance abuse tubal ligation; no tobacco use alcohol use denies substance use; nursing notes Arthritis: No Asthma: No Autoimmune Disease: No Blood Disorders: No Anxiety: Yes Depression: Yes Heart Rhythm Problems: No Cancer: No Cardiovascular Problems: Yes High Cholesterol: No Chemotherapy: No Chest Pain: No Congestive Heart Failure: No COPD: No Cerebrovascular Accident: No Diabetes: No Diminished Hearing: No Endocrine: No Gastrointestinal Disorders: No Genitourinary: No Headaches: Yes Hypertension: Yes Immune Disorder: No Implanted Vascular Access Dvce: No Musculoskeletal: No Neurologic: Yes Psychiatric: Yes Reproductive: No Respiratory: No Immunizations Current: Yes Migraines: Yes Radiation Therapy: No Seizures: Yes Sleep Apnea: No Thyroid Disease: No Tetanus Vaccination: < 5 Years Influenza Vaccination: Yes PNEUMOCCOCAL Vaccine (Year): 2 ?: Not Menopausal: Yes : 2 Para: 2 Miscarriage: 0 : 0 Tubal Ligation: Yes Past Surgical History Abdominal Surgery: No Cardiac Surgery: No Ear Surgery: No Endocrine Surgery: No Eye Surgery: No Genitourinary Surgery: No Gynecologic Surgery: Yes (TUBAL LIGATION) Neurologic Surgery: No Oral Surgery: No Thoracic Surgery: No Other Surgery: No (pt denies history of surgury) Social History Alcohol Use: No Tobacco Use: No Substance Use: No Allergies-Medications (Allergen,Severity, Reaction): Coded Allergies: No Known Allergies (Verified Allergy, Unknown, 05/29/17) Reported Meds & Prescriptions Reported Meds & Active Scripts Active Walker with Front Wheels (Device) 1 Mis Mis Ea .XX DIRECTED Reported Risperdal (Risperidone) 3 Mg Tab 3 Mg PO Q12HR Lamictal (Lamotrigine) 25 Mg Tab 50 Mg PO BID Gabapentin 300 Mg Cap 300 Mg PO QID Norvasc (Amlodipine Besylate) 5 Mg Tab 5 Mg PO DAILY Dilantin (Phenytoin Extended) 100 Mg Cap 100 Mg PO TID Levetiracetam 500 Mg Tab 500 Mg PO TID Citalopram (Citalopram Hydrobromide) 40 Mg Tab 40 Mg PO HS Review of Systems Except as stated in HPI: all other systems reviewed are Neg General / Constitutional: No: Fever, Chills Eyes: Positive: Blurred Vision, Visual changes (3 weeks decreased vision left eye; last night hit left face and increased left eye pain) HENT: Positive: Headaches, Lightheadedness Cardiovascular: No: Chest Pain or Discomfort Respiratory: No: Shortness of Breath Gastrointestinal: No: Nausea, Vomiting, Diarrhea, Abdominal Pain Genitourinary: No: Dysuria, Flank Pain Musculoskeletal: No: Myalgias, Arthralgias Skin: No Rash Neurologic: Positive: Weakness, Seizures, No: Dizziness, Syncope Psychiatric: No: Anxiety, Depression Hematologic/Lymphatic: No: Easy Bruising Physical Exam Narrative GENERAL: Well-developed well-nourished female in no acute respiratory distress GCS 15 SKIN: Warm and dry. HEAD: Atraumatic. Normocephalic. EYES: Pupils equal and round. No scleral icterus. Left eye injection subconjunctival hemorrhage no drainage. No periorbital rim soft tissue swelling or bony step-off. ENT: No nasal bleeding or discharge. Mucous membranes pink and dry. No tongue trauma. No dental malocclusion. No hemotympanum. NECK: Trachea midline. No JVD. No midline tenderness to direct palpation along the cervical spine. CARDIOVASCULAR: Regular rate and rhythm. RESPIRATORY: No accessory muscle use. Clear to auscultation. Breath sounds equal bilaterally. GASTROINTESTINAL: Abdomen soft, non-tender, nondistended. Hepatic and splenic margins not palpable. MUSCULOSKELETAL: Extremities without clubbing, cyanosis, or edema. No obvious deformities. NEUROLOGICAL: Awake and alert. GCS 15. No obvious cranial nerve deficits. Motor grossly within normal limits. Five out of 5 muscle strength in the arms and legs. Normal speech. PSYCHIATRIC: Appropriate mood and affect; insight and judgment normal. Data Data Last Documented VS Vital Signs Date Time Temp Pulse Resp B/P (MAP) Pulse Ox O2 Delivery O2 Flow Rate FiO2 06/18/17 00:14 20 98 Room Air 06/18/17 00:13 78 06/17/17 20:57 98.0 Orders Orders Electrocardiogram (06/17/17 21:12) Complete Blood Count With Diff (06/17/17 21:12) Comprehensive Metabolic Panel (06/17/17 21:12) Magnesium (Mg) (06/17/17 21:12) Ckmb (Isoenzyme) Profile (06/17/17 21:12) Troponin I (06/17/17 21:12) Act Partial Throm Time (Ptt) (06/17/17 21:12) Prothrombin Time / Inr (Pt) (06/17/17 21:12) Urinalysis - C+S If Indicated (06/17/17 21:12) Chest, Single Ap (06/17/17 21:12) Ct Brain W/O Iv Contrast(Rout) (06/17/17 21:12) Ct Cerv Spine W/O Contrast (06/17/17 21:12) Blood Glucose (06/17/17 21:12) Ecg Monitoring (06/17/17 21:12) Iv Access Insert/Monitor (06/17/17 21:12) Oximetry (06/17/17 21:12) Sodium Chloride 0.9% Flush (Ns Flush) (06/17/17 21:15) Ct Facial Bones W/O Iv Cont (06/17/17 ) Proparacaine 0.5% Opth Soln (Alcaine 0.5 (06/17/17 21:15) Phenytoin (Dilantin) (06/17/17 21:12) Alcohol (Ethanol) (06/17/17 21:12) Drug Screen, Random Urine (06/17/17 21:12) ^ Seizure Precautions (06/17/17 21:12) Sodium Chlor 0.9% 1000 Ml Inj (Ns 1000 M (06/17/17 21:15) CKMB (06/17/17 21:35) CKMB% (06/17/17 21:35) Admit Order (Ed Use Only) (06/18/17 ) Rn Visiting / Telemetry JIMENEZ.Q8H (06/18/17 00:41) Activity Bed Rest (06/18/17 00:41) Notify Dr: Other (06/18/17 00:41) Place In Observation (06/18/17 ) Vital Signs (Adult) Q4H (06/18/17 00:33) Neuro Checks Q4H (06/18/17 00:33) Activity Oob With Assistance (06/18/17 00:33) Rn Visiting / Telemetry .CONTINUOUS (06/18/17 00:33) Intake + Output JIMENEZ.QSHIFT (06/18/17 00:33) Diet Regular Basic (06/18/17 Breakfast) Sodium Chlor 0.9% 1000 Ml Inj (Ns 1000 M (06/18/17 00:33) Sodium Chloride 0.9% Flush (Ns Flush) (06/18/17 00:45) Sodium Chloride 0.9% Flush (Ns Flush) (06/18/17 09:00) Metoclopramide Inj (Reglan Inj) (06/18/17 00:45) Comprehensive Metabolic Panel (06/18/17 06:00) Complete Blood Count With Diff (06/18/17 06:00) Scd Bilateral/Knee High JIMENEZ.BID (06/18/17 00:33) Ismael Bilateral/Knee High JIMENEZ.QSHIFT (06/18/17 00:33) Naloxone Inj (Narcan Inj) (06/18/17 00:45) Docusate Sodium-Senna (Paula-Colace) (06/18/17 09:00) Magnesium Hydroxide Liq (Milk Of Magnesi (06/18/17 00:45) Sennosides (Senokot) (06/18/17 00:45) Bisacodyl Supp (Dulcolax Supp) (06/18/17 00:45) Lactulose Liq (Lactulose Liq) (06/18/17 00:45) ^ 1:1 Precautions (06/18/17 ) Lorazepam Inj (Ativan Inj) (06/18/17 00:45) Amlodipine (Norvasc) (06/18/17 09:00) Citalopram (Celexa) (06/18/17 21:00) Gabapentin (Neurontin) (06/18/17 09:00) Lamotrigine (Lamictal) (06/18/17 09:00) Levetiracetam (Keppra) (06/18/17 09:00) Risperidone (Risperdal) (06/18/17 09:00) Phenytoin (Dilantin) (06/18/17 06:00) Labs Laboratory Tests Test 06/17/17 21:35 White Blood Count 9.1 TH/MM3 Red Blood Count 4.83 MIL/MM3 Hemoglobin 15.0 GM/DL Hematocrit 43.6 % Mean Corpuscular Volume 90.2 FL Mean Corpuscular Hemoglobin 31.0 PG Mean Corpuscular Hemoglobin Concent 34.3 % Red Cell Distribution Width 17.0 % Platelet Count 394 TH/MM3 Mean Platelet Volume 7.7 FL Neutrophils (%) (Auto) 43.7 % Lymphocytes (%) (Auto) 46.4 % Monocytes (%) (Auto) 7.0 % Eosinophils (%) (Auto) 1.6 % Basophils (%) (Auto) 1.3 % Neutrophils # (Auto) 4.0 TH/MM3 Lymphocytes # (Auto) 4.2 TH/MM3 Monocytes # (Auto) 0.6 TH/MM3 Eosinophils # (Auto) 0.2 TH/MM3 Basophils # (Auto) 0.1 TH/MM3 CBC Comment DIFF FINAL Differential Comment Prothrombin Time 10.1 SEC Prothromb Time International Ratio 1.0 RATIO Activated Partial Thromboplast Time 27.3 SEC Blood Urea Nitrogen 6 MG/DL Creatinine 0.84 MG/DL Random Glucose 97 MG/DL Total Protein 8.5 GM/DL Albumin 3.5 GM/DL Calcium Level 8.6 MG/DL Magnesium Level 2.4 MG/DL Alkaline Phosphatase 171 U/L Aspartate Amino Transf (AST/SGOT) 26 U/L Alanine Aminotransferase (ALT/SGPT) 19 U/L Total Bilirubin 0.3 MG/DL Sodium Level 138 MEQ/L Potassium Level 4.2 MEQ/L Chloride Level 103 MEQ/L Carbon Dioxide Level 26.8 MEQ/L Anion Gap 8 MEQ/L Estimat Glomerular Filtration Rate 86 ML/MIN Total Creatine Kinase 133 U/L Creatine Kinase MB LESS THAN 0.5 NG/ML Troponin I LESS THAN 0.02 NG/ML Phenytoin (Dilantin) Level 37.2 MCG/ML Ethyl Alcohol Level LESS THAN 3 MG/DL [facility] Medical Decision Making Medical Screen Exam Complete: Yes Emergency Medical Condition: Yes Medical Record Reviewed: Yes Interpretation(s) dilantin: 37.2, elevated EKG: Normal sinus rhythm rate 70 normal axis and intervals no acute ST elevation or injury pattern change noted artifact is present at baseline Last Impressions Head CT 06/17/172111 Signed Impressions: Service Date/Time: June 21:33 - CONCLUSION: 1. Negative noncontrast CT brain. Yovany Chen MD Cervical Spine CT 06/17/172111 Signed Impressions: Service Date/Time: June 21:33 - CONCLUSION: Straightening of the cervical lordosis. No evidence of compression fracture or spondylolisthesis. Yovany Chen MD Maxillofacial CT 06/17/17 0000 Signed Impressions: Service Date/Time: June 21:33 - CONCLUSION: 1. No facial bone fracture seen. 2. Left preseptal soft tissue swelling about the orbit. Yovany Chen MD CBC & BMP Diagram 06/17/17 21:35 Total Protein 8.5 H, Albumin 3.5, Calcium Level 8.6, Magnesium Level 2.4, Alkaline Phosphatase 171 H, Aspartate Amino Transf (AST/SGOT) 26, Alanine Aminotransferase (ALT/SGPT) 19, Total Bilirubin 0.3 Vital Signs Date Time Temp Pulse Resp B/P (MAP) Pulse Ox O2 Delivery O2 Flow Rate FiO2 06/17/17 20:57 98.0 94 20 115/77 (90) 98 Room Air 06/17/17 20:00 97.9 82 18 115/67 (83) 99 Urine drug screen: Positive for cocaine Differential Diagnosis Altered mental status, minor closed head injury, ICH, facial trauma, facial fracture, globe injury, corneal abrasion, traumatic iritis, sub-conjunctival hemorrhage, breakthrough seizure, subtherapeutic anticonvulsant, medication noncompliance, substance ingestion, arrhythmia, electrolyte disturbance, dehydration Narrative Course Patient placed on monitors seizure precautions administered IV access obtained specimens collected and sent for resulting patient administered 1 L normal saline random glucose ordered. Fluorescein stain no fluorescein uptake no obvious corneal abrasion ulceration; tonometry left eye16,20,17; visual acuity right eye 20/70 left eye 20/70 both eyes 20/70. Patient identified to have elevation of Dilantin in toxic range Patient's case discussed with Dr. Radha tabares except for admission for elevated Dilantin and toxic range, noncompliance, substance/cocaine abuse, dehydration, facial contusion with traumatic iritis Physician Communication Physician Communication call placed to [facility] service for admission Diagnosis Primary Impression: Phenytoin toxicity Qualified Codes: T42.0X1A - Poisoning by hydantoin derivatives, accidental ( unintentional), initial encounter Additional Impressions: Seizure Subconjunctival hemorrhage of left eye Traumatic iritis Contusion of face Qualified Codes: S00.83XA - Contusion of other part of head, initial encounter Cocaine abuse Admitting Information Admitting Physician Requests: Observation Allie Christianson MD Jun 17, 2017 21:49
--- NOTE | 2017-06-17 21:57 | RADRPT ---
EXAM DATE/TIME: 06/17/2017 21:33 [facility] COMPARISON: CT BRAIN W/O CONTRAST, May 30, 2017, 0:00. INDICATIONS : Trauma, fall. Dizziness. RADIATION DOSE: 56.35 CTDIvol (mGy) ; Patient motion MEDICAL HISTORY : Hypertension. SURGICAL HISTORY : None. ENCOUNTER: Initial ACUITY: 1 day PAIN SCALE: 0/10 LOCATION: cranial TECHNIQUE: Multiple contiguous axial images were obtained of the head. Using automated exposure control and adj ustment of the mA and/or kV according to patient size, radiation dose was kept as low as reasonably a chievable to obtain optimal diagnostic quality images. DICOM format image data is available electro nically for review and comparison. FINDINGS: CEREBRUM: The ventricles are normal for age. No evidence of midline shift, mass lesion, hemorrhage or acute in farction. No extra-axial fluid collections are seen. POSTERIOR FOSSA: The cerebellum and brainstem are intact. The 4th ventricle is midline. The cerebellopontine angle i s unremarkable. EXTRACRANIAL: The visualized portion of the orbits is intact. SKULL: The calvaria is intact. No evidence of skull fracture. CONCLUSION: 1. Negative noncontrast CT brain. Yovany Chen MD on June 17, 2017 at 21:55 Board Certified Radiologist. This report was verified electronically.
--- NOTE | 2017-06-17 21:59 | RADRPT ---
EXAM DATE/TIME: 06/17/2017 21:33 [facility] COMPARISON: No previous studies available for comparison. INDICATIONS : TRauma, patient fell last, neck pain. RADIATION DOSE: 27.30 CTDIvol (mGy) MEDICAL HISTORY : Seizures. Hypertension. SURGICAL HISTORY : None. ENCOUNTER: Initial ACUITY: 1 day PAIN SCALE: 5/10 LOCATION: neck TECHNIQUE: Volumetric scanning of the cervical spine was performed. Multiplanar reconstructions in the sagittal, coronal and oblique axial planes were performed. Using automated exposure control and adjustment o f the mA and/or kV according to patient size, radiation dose was kept as low as reasonably achievable to obtain optimal diagnostic quality images. DICOM format image data is available electronically f or review and comparison. FINDINGS: There is straightening of the cervical lordosis. Vertebral body height is maintained. Moderate ante rior nonbridging paravertebral ossifications present C4-C7. The posterior elements are in normal ali gnment without evidence of locked or perched facets. Spinous processes are intact. The atlantoaxial articulation is intact. C2-C3: No fracture seen. The neural foramen are patent. C3-C4: No fracture seen. The neural foramen are patent. C4-C5: No fracture seen. The neural foramen are patent. C5-C6: No fracture seen. The neural foramen are patent. C6-C7: No fracture seen. The neural foramen are patent. C7-T1: No fracture seen. The neural foramen are patent. CONCLUSION: Straightening of the cervical lordosis. No evidence of compression fracture or spondylolisthesis. Yovany Chen MD on June 17, 2017 at 21:56 Board Certified Radiologist. This report was verified electronically.
--- NOTE | 2017-06-17 22:01 | RADRPT ---
EXAM DATE/TIME: 06/17/2017 21:33 [facility] COMPARISON: No previous studies available for comparison. INDICATIONS : Trauma, fall, left eye redness. RADIATION DOSE: 26.35 CTDIvol (mGy) MEDICAL HISTORY : Hypertension. SURGICAL HISTORY : None. ENCOUNTER: Initial ACUITY: 1 day PAIN SCORE: 4/10 LOCATION: facial TECHNIQUE: Volumetric scanning of the facial bones was performed. Using automated exposure control and adjustme nt of the mA and/or kV according to patient size, radiation dose was kept as low as reasonably achiev able to obtain optimal diagnostic quality images. DICOM format image data is available electronicall y for review and comparison. FINDINGS: There is mild left periorbital soft tissue swelling preseptal in location. No radiopaque foreign bod ies. The nasal bone, zygomatic arches, maxilla, mandible, pterygoid plates, and orbital wall is inta ct. CONCLUSION: 1. No facial bone fracture seen. 2. Left preseptal soft tissue swelling about the orbit. Yovany Chen MD on June 17, 2017 at 21:58 Board Certified Radiologist. This report was verified electronically.
[2017-06-17 22:19] LABS: PROTHROMBIN TIME - PATIENT 10.1 SEC (9.8-11.6)
[2017-06-17 22:23] LABS: ALBUMIN 3.5 GM/DL (3.4-5.0); ALT (GPT) 19 U/L (10-53); AST (GOT) 26 U/L (15-37); BICARBONATE 26.8 MEQ/L (21.0-32.0); BLOOD UREA NITROGEN 6 MG/DL (7-18); CALCIUM 8.6 MG/DL (8.5-10.1); CHLORIDE 103 MEQ/L (98-107); CREATININE 0.84 MG/DL (0.50-1.00); GLOMERULAR FILTRATION RATE 86 ML/MIN (>89); GLUCOSE,RANDOM 97 MG/DL (74-106); MAGNESIUM 2.4 MG/DL (1.5-2.5); SODIUM (NA) 138 MEQ/L (136-145)
[2017-06-17 22:37] LABS: BASOPHIL # 0.1 TH/MM3 (0-0.2); BASOPHIL % 1.3 % (0.0-2.0); EOSINOPHIL # 0.2 TH/MM3 (0-0.4); EOSINOPHIL % 1.6 % (0.0-4.0); HEMATOCRIT 43.6 % (35.0-46.0); LYMPH % 46.4 % (9.0-44.0); LYMPHOCYTE # 4.2 TH/MM3 (1.0-4.8); MEAN CELL VOLUME 90.2 FL (80.0-100.0); MEAN CORPUSCULAR HGB CONC 34.3 % (32.0-36.0); MEAN PLATELET VOLUME 7.7 FL (7.0-11.0); MONOCYTE # 0.6 TH/MM3 (0-0.9); NEUT % 43.7 % (16.0-70.0); PLATELET COUNT 394 TH/MM3 (150-450); RED BLOOD COUNT 4.83 MIL/MM3 (4.00-5.30); WHITE BLOOD COUNT 9.1 TH/MM3 (4.0-11.0)
[2017-06-17 22:45] LABS: ALKALINE PHOSPHATASE 171 U/L (45-117); TOTAL BILIRUBIN ADULT 0.3 MG/DL (0.2-1.0); TOTAL PROTEIN 8.5 GM/DL (6.4-8.2); TROPONIN I LESS THAN 0.02 NG/ML (0.02-0.05)
[2017-06-17 22:46] LABS: PHENYTOIN (DILANTIN) 37.2 MCG/ML (10.0-20.0)
--- NOTE | 2017-06-17 23:31 | RADRPT ---
EXAM DATE/TIME: 06/17/2017 21:21 [facility] COMPARISON: CHEST SINGLE AP, May 06, 2017, 14:57. INDICATIONS : Shortness of breath. MEDICAL HISTORY : Seizures. Hypertension. SURGICAL HISTORY : Tubal ligation. ENCOUNTER: Initial ACUITY: 1 day PAIN SCORE: 0/10 LOCATION: Bilateral chest FINDINGS: Trace left base atelectasis. Lungs otherwise appear clear. No pleural effusion. No pneumothorax. Hear t size stable, normal. CONCLUSION: Minimal left base atelectasis. Otherwise negative. Sabino Cuha MD on June 17, 2017 at 23:29 Board Certified Radiologist. This report was verified electronically.
[2017-06-18] VITALS (12 sets, daily range): BP systolic 121–167; BP diastolic 66–99; PULSE 73–86; RESP 16–24; TEMP 96.5–98.6; O2SAT 94–99
[2017-06-18] MEDS ORDERED: BISACODYL 10 MG SUPP RECTAL PRN (00:45)
[2017-06-18] MEDS ORDERED: MAGNESIUM HYDROXIDE SUSP 30 ML CUP PO PRN (00:45)
[2017-06-18] MEDS ORDERED: LACTULOSE SYRUP 20 GM/30 ML CUP PO PRN (00:45)
[2017-06-18] MEDS ORDERED: METOCLOPRAMIDE HCL 10 MG/2 ML VIAL IV PUSH PRN (00:45)
[2017-06-18] MEDS ORDERED: LORazepam 2 MG/ML VIAL IV PUSH PRN (00:45)
[2017-06-18] MEDS ORDERED: NALOXONE HCL 0.4 MG/ML AMP IV PUSH PRN (00:45)
[2017-06-18] MEDS ORDERED: SODIUM CHLORIDE 0.9% FLUSH 10 ML FLUSH IV FLUSH PRN (00:45)
[2017-06-18] MEDS ORDERED: SENNOSIDES 8.6 MG TAB PO PRN (00:45)
[2017-06-18] MEDS: SODIUM CHLOR 0.9% 1000 ML INJ 1,000 ML IV SCH ×3 (01:13→20:33)
--- NOTE | 2017-06-18 02:50 | HHI.HP ---
[facility] Christopher Padilla MD Admission Diagnosis phenytoin toxicity; non-compliance; seizure Diagnoses: Travel History International Travel<30 Days: No Contact w/Intl Traveler <30 Da: No Traveled to Known Affected Are: No History of Present Illness As do 1-year-old female with a past medical history significant for hypertension and seizure disorder presents to the emergency department for evaluation of ongoing seizures. The patient reports her neurologist is Dr. Knott. She states she is compliant with her medication. Despite that she has had multiple recent seizures most recently last night. She states that during one of her seizures when she was in the kitchen, she fell onto her face and has had a red, swollen eye with visual changes and pain since that time. Patient's Dilantin level is supratherapeutic at 37.2. She denies any chest pain or shortness of breath. No nausea/vomiting/diarrhea. No lateralizing signs/ symptoms. Review of Systems Except as stated in HPI: all other systems reviewed are Neg Past Family Social History Past Medical History Seizure disorder Hypertension Past Surgical History None Reported Medications Reported Meds & Active Scripts Active Walker with Front Wheels (Device) 1 Mis Mis Ea .XX DIRECTED Reported Risperdal (Risperidone) 3 Mg Tab 3 Mg PO Q12HR Lamictal (Lamotrigine) 25 Mg Tab 50 Mg PO BID Gabapentin 300 Mg Cap 300 Mg PO QID Norvasc (Amlodipine Besylate) 5 Mg Tab 5 Mg PO DAILY Dilantin (Phenytoin Extended) 100 Mg Cap 100 Mg PO TID Levetiracetam 500 Mg Tab 500 Mg PO TID Citalopram (Citalopram Hydrobromide) 40 Mg Tab 40 Mg PO HS Allergies: Coded Allergies: No Known Allergies (Verified Allergy, Unknown, 05/29/17) Family History Negative for CAD/DM Social History Denies alcohol, tobacco and illicit drugs. Physical Exam Vital Signs Vital Signs Date Time Temp Pulse Resp B/P (MAP) Pulse Ox O2 Delivery O2 Flow Rate FiO2 06/18/17 00:14 20 98 Room Air 06/18/17 00:13 78 20 149/90 (109) 98 Room Air 06/17/17 20:57 98.0 94 20 115/77 (90) 98 Room Air 06/17/17 20:00 97.9 82 18 115/67 (83) 99 Physical Exam GENERAL: female lying in bed SKIN: No rashes, ecchymoses or lesions. Cool and dry. HEAD: Atraumatic. Normocephalic. No temporal or scalp tenderness. EYES: Pupils equal and round. Left eye injection. ENT: Nose without bleeding, purulent drainage or septal hematoma. Throat without erythema, tonsillar hypertrophy or exudate. Uvula midline. Airway patent. NECK: Trachea midline. No JVD or lymphadenopathy. Supple, nontender, no meningeal signs. CARDIOVASCULAR: Regular rate and rhythm without murmurs, gallops, or rubs. RESPIRATORY: Clear to auscultation. Breath sounds equal bilaterally. No wheezes , rales, or rhonchi. GASTROINTESTINAL: Abdomen soft, non-tender, nondistended. No hepato-splenomegaly , or palpable masses. No guarding. MUSCULOSKELETAL: Extremities without clubbing, cyanosis, or edema. No joint tenderness, effusion, or edema noted. No calf tenderness. NEUROLOGICAL: Awake and alert. Cranial nerves II through XII intact. Motor and sensory grossly within normal limits. Normal speech. Laboratory Laboratory Tests Test 06/17/17 21:35 White Blood Count 9.1 Red Blood Count 4.83 Hemoglobin 15.0 Hematocrit 43.6 Mean Corpuscular Volume 90.2 Mean Corpuscular Hemoglobin 31.0 Mean Corpuscular Hemoglobin Concent 34.3 Red Cell Distribution Width 17.0 Platelet Count 394 Mean Platelet Volume 7.7 Neutrophils (%) (Auto) 43.7 Lymphocytes (%) (Auto) 46.4 Monocytes (%) (Auto) 7.0 Eosinophils (%) (Auto) 1.6 Basophils (%) (Auto) 1.3 Neutrophils # (Auto) 4.0 Lymphocytes # (Auto) 4.2 Monocytes # (Auto) 0.6 Eosinophils # (Auto) 0.2 Basophils # (Auto) 0.1 CBC Comment DIFF FINAL Differential Comment Prothrombin Time 10.1 Prothromb Time International Ratio 1.0 Activated Partial Thromboplast Time 27.3 Blood Urea Nitrogen 6 Creatinine 0.84 Random Glucose 97 Total Protein 8.5 Albumin 3.5 Calcium Level 8.6 Magnesium Level 2.4 Alkaline Phosphatase 171 Aspartate Amino Transf (AST/SGOT) 26 Alanine Aminotransferase (ALT/SGPT) 19 Total Bilirubin 0.3 Sodium Level 138 Potassium Level 4.2 Chloride Level 103 Carbon Dioxide Level 26.8 Anion Gap 8 Estimat Glomerular Filtration Rate 86 Total Creatine Kinase 133 Creatine Kinase MB LESS THAN 0.5 Troponin I LESS THAN 0.02 Phenytoin (Dilantin) Level 37.2 Ethyl Alcohol Level LESS THAN 3 Result Diagram: 06/17/17213406/17/172134 Caprin VTE Risk Assessment Caprini VTE Risk Assessment: No/Low Risk (score <= 1) Caprini Risk Assessment Model Point Value = 1 Point Value = 2 Point Value = 3 Point Value = 5 Age 41-60 Minor surgery BMI > 25 kg/m2 Swollen legs Varicose veins or History of unexplained or recurrent spontaneous Oral contraceptives or hormone replacement Sepsis (< 1 month) Serious lung disease, including pneumonia (< 1 month) Abnormal pulmonary function Acute myocardial infarction Congestive heart failure (< 1 month) History of inflammatory bowel disease Medical patient at bed rest Age 61-74 Arthroscopic surgery Major open surgery (> 45 min) Laparoscopic surgery (> 45 min) Malignancy Confined to bed (> 72 hours) Immobilizing plaster cast Central venous access Age >= 75 History of VTE Family history of VTE Factor V Leiden Prothrombin [id number] Lupus anticoagulant Anticardiolipin antibodies Elevated serum homocysteine Heparin-induced thrombocytopenia Other congenital or acquired thrombophilia Stroke (< 1 month) Elective arthroplasty Hip, pelvis, or leg fracture Acute spinal cord injury (< 1 month) Prophylaxis Regimen Total Risk Factor Score Risk Level Prophylaxis Regimen 0-1 Low Early ambulation 2 Moderate Order ONE of the following: *Sequential Compression Device (SCD) *Heparin 5000 units SQ BID 3-4 Higher Order ONE of the following medications: *Heparin 5000 units SQ TID *Enoxaparin/Lovenox 40 mg SQ daily (WT < 150 kg, CrCl > 30 mL/min) *Enoxaparin/Lovenox 30 mg SQ daily (WT < 150 kg, CrCl > 10-29 mL/min) *Enoxaparin/Lovenox 30 mg SQ BID (WT < 150 kg, CrCl > 30 mL/min) AND/OR *Sequential Compression Device (SCD) 5 or more Highest Order ONE of the following medications: *Heparin 5000 units SQ TID (Preferred with Epidurals) *Enoxaparin/Lovenox 40 mg SQ daily (WT < 150 kg, CrCl > 30 mL/min) *Enoxaparin/Lovenox 30 mg SQ daily (WT < 150 kg, CrCl > 10-29 mL/min) *Enoxaparin/Lovenox 30 mg SQ BID (WT < 150 kg, CrCl > 30 mL/min) AND *Sequential Compression Device (SCD) Assessment and Plan Assessment and Plan Assessment/plan: 1. Seizure disorder/continued seizures/supratherapeutic Dilantin level Holding Dilantin Continue gabapentin, Lamictal, Keppra Patient's neurologist, Dr. Knott consulted, appreciate recommendations IV fluids Seizure precautions Ativan when necessary 2. Traumatic iritis Ophthalmology consulted, appreciate recommendations 3. Hypertension Continue home amlodipine 4. Depression Continue home Celexa and Risperdal 5. History of polysubstance abuse UDS pending FEN Regular diet Electrolytes: Moderate replete when necessary NS at 100 cc/hr SCDs Genesis Garcia MD Jun 18, 2017 02:50
[2017-06-18 05:37] LABS: BACTERIA, URINE RARE /hpf; BILIRUBIN, URINE NEG (NEG); BLOOD, URINE NEG (NEG); GLUCOSE,URINE NEG (NEG); KETONE, URINE NEG (NEG); MUCUS URINE FEW /lpf (OCC); NITRITE,URINE NEG (NEG); PH, URINE 6.5 (5.0-8.5); SQUAMOUS EPITHELIAL CELL URINE 2 /hpf (0-5); URINE COLOR LIGHT-YELLOW (YELLW/STRAW); URINE LEUKOCYTE ESTERASE SMALL (NEG)
[2017-06-18 06:45] LABS: ALKALINE PHOSPHATASE 157 U/L (45-117); TOTAL BILIRUBIN ADULT 0.2 MG/DL (0.2-1.0); TOTAL PROTEIN 7.7 GM/DL (6.4-8.2)
[2017-06-18 06:50] LABS: ALT (GPT) 16 U/L (10-53); AST (GOT) 18 U/L (15-37); BICARBONATE 23.7 MEQ/L (21.0-32.0); BLOOD UREA NITROGEN 5 MG/DL (7-18); CALCIUM 7.9 MG/DL (8.5-10.1); CHLORIDE 107 MEQ/L (98-107); CREATININE 0.73 MG/DL (0.50-1.00); GLOMERULAR FILTRATION RATE 101 ML/MIN (>89); GLUCOSE,RANDOM 88 MG/DL (74-106); SODIUM (NA) 138 MEQ/L (136-145)
[2017-06-18 07:08] LABS: PHENYTOIN (DILANTIN) 39.8 MCG/ML (10.0-20.0)
--- NOTE | 2017-06-18 09:12 | PD.CONS ---
History of Present Illness Service Ophthalmology Consult Requested By Reason for Consult injury to left eye Primary Care Physician Christopher Padilla MD Diagnoses: History of Present Illness 51 yo F with a h/o HTN and seizure disorder presented to ED for evaluation of ongoing seizures. The patient's neurologist is Dr. Knott. She states that during one of her seizures she fell onto her face and has had a left red, swollen eye with visual changes and pain since that time. No significant ocular history. Past Family Social History Allergies: Coded Allergies: No Known Allergies (Verified Allergy, Unknown, 05/29/17) Physical Exam Vital Signs Vital Signs Date Time Temp Pulse Resp B/P (MAP) Pulse Ox O2 Delivery O2 Flow Rate FiO2 06/18/17 08:00 75 24 166/80 (108) 95 Room Air 06/18/17 07:00 73 19 96 Room Air 06/18/17 00:14 20 98 Room Air 06/18/17 00:13 78 20 149/90 (109) 98 Room Air 06/17/17 20:57 98.0 94 20 115/77 (90) 98 Room Air 06/17/17 20:00 97.9 82 18 115/67 (83) 99 Physical Exam Va cc at near OD 20/400, OS CF EOM full OU, no diplopia CVF full OU Pupils 2-1 no APD OU IOP normal to palpation OU Anterior exam OD - normal eyelid, C/S W&Q, K clear, AC deep, pupil round, lens clear OS - normal eyelid, conj injection and chemosis, K clear, AC deep, pupil round, lens clear Laboratory Laboratory Tests Test 06/17/17 21:35 06/18/17 03:32 06/18/17 05:20 White Blood Count 9.1 Red Blood Count 4.83 Hemoglobin 15.0 Hematocrit 43.6 Mean Corpuscular Volume 90.2 Mean Corpuscular Hemoglobin 31.0 Mean Corpuscular Hemoglobin Concent 34.3 Red Cell Distribution Width 17.0 Platelet Count 394 Mean Platelet Volume 7.7 Neutrophils (%) (Auto) 43.7 Lymphocytes (%) (Auto) 46.4 Monocytes (%) (Auto) 7.0 Eosinophils (%) (Auto) 1.6 Basophils (%) (Auto) 1.3 Neutrophils # (Auto) 4.0 Lymphocytes # (Auto) 4.2 Monocytes # (Auto) 0.6 Eosinophils # (Auto) 0.2 Basophils # (Auto) 0.1 CBC Comment DIFF FINAL Differential Comment Prothrombin Time 10.1 Prothromb Time International Ratio 1.0 Activated Partial Thromboplast Time 27.3 Blood Urea Nitrogen 6 5 Creatinine 0.84 0.73 Random Glucose 97 88 Total Protein 8.5 7.7 Albumin 3.5 3.0 Calcium Level 8.6 7.9 Magnesium Level 2.4 Alkaline Phosphatase 171 157 Aspartate Amino Transf (AST/SGOT) 26 18 Alanine Aminotransferase (ALT/SGPT) 19 16 Total Bilirubin 0.3 0.2 Sodium Level 138 138 Potassium Level 4.2 4.0 Chloride Level 103 107 Carbon Dioxide Level 26.8 23.7 Anion Gap 8 7 Estimat Glomerular Filtration Rate 86 101 Total Creatine Kinase 133 Creatine Kinase MB LESS THAN 0.5 Troponin I LESS THAN 0.02 Phenytoin (Dilantin) Level 37.2 39.8 Ethyl Alcohol Level LESS THAN 3 Urine Color LIGHT-YELLOW Urine Turbidity CLEAR Urine pH 6.5 Urine Specific [place] 1.007 Urine Protein NEG Urine Glucose (UA) NEG Urine Ketones NEG Urine Occult Blood NEG Urine Nitrite NEG Urine Bilirubin NEG Urine Urobilinogen LESS THAN 2.0 Urine Leukocyte Esterase SMALL Urine RBC 1 Urine WBC 4 Urine Squamous Epithelial Cells 2 Urine Bacteria RARE Urine Mucus FEW Microscopic Urinalysis Comment CULT NOT INDICATED Urine Opiates Screen NEG Urine Barbiturates Screen NEG Urine Amphetamines Screen NEG Urine Benzodiazepines Screen NEG Urine Cocaine Screen POS Urine Cannabinoids Screen NEG Result Diagram: 06/17/17213406/18/17 0332 Assessment and Plan Problem List: (1) Iritis of left eye ICD Codes: H20.9 - Unspecified iridocyclitis Plan: Unable to examine well due to patient's light sensitivity. Started on prednisolone acetate 1% QID OS. Right eye vision is also very poor - pt states she has not had an eye exam in a long time. Follow up as outpatient once discharged. Alice Schwab MD Jun 18, 2017 09:12
[2017-06-18] MEDS: risperiDONE 3 MG TAB PO SCH ×2 (09:41→21:25)
[2017-06-18] MEDS: DOCUSATE SODIUM 50 MG/SENNA 8.6 MG TAB PO SCH ×2 (09:41→21:24)
[2017-06-18] MEDS: SODIUM CHLORIDE 0.9% FLUSH 10 ML FLUSH IV FLUSH SCH ×2 (09:41→21:00)
[2017-06-18] MEDS: lamoTRIgine 25 MG TAB PO SCH ×2 (09:41→21:25)
[2017-06-18] MEDS: levETIRAcetam 500 MG TAB PO SCH ×3 (09:42→18:42)
[2017-06-18] MEDS: GABAPENTIN 300 MG CAP PO SCH ×4 (09:42→21:24)
[2017-06-18] MEDS: amLODIPine BESYLATE 5 MG TAB PO SCH (09:42)
--- NOTE | 2017-06-18 10:20 | MB ---
cc: Spenser Newton MD DATE OF CONSULT: 06/18/2017 HISTORY: This is a 51-year-old right-handed woman with hypertension, otherwise she has been fairly healthy. She has bipolar. She sees Dr. Knott for seizures which she has had ever since she was a child. She is currently on Citalopram and Risperdal. She has not had any new medicine changes recently. She is also on gabapentin 300 mg four times a day, Keppra 500 mg 2 pulls three times a day, Dilantin 100 mg 3 pills three times a day and Lamictal 50 mg twice a day. She says there has been no change in her medicines and she has not taken to much Dilantin, but when she came in her Dilantin level was 39. She said she had several seizures, about 4, in the last 3 days. She had been seen here many times in the hospital. The last time was by Dr. Rizzo on 05/07/2017. She had 3 seizures in the 24-hours prior, generalized tonic-clonic with tongue and lip injury and had not seen Dr. Knott for a while then. She was on Seroquel 300 at bedtime and Citalopram then. Her Dilantin level was 38 at that time. Her Dilantin was held. Her Dilantin dose was read as 100 mg three times a day, although I am sure if she wasn't taking more than that at that time. I had also seen her in 05/2015 when she was on Dilantin 300 twice a day, Keppra 1000 twice a day, Neurontin 300 three times a day. Her Dilantin level was 50. She was having seizures every other day. She was on Risperdal at that time and Celexa. I note her sed rate had been normal as well as had been RPR, RICHARD, CBC. She was admitted yesterday. She had not felt well for 3 weeks. She was drowsy. She had pain in her left eye when she had a seizure and fell and hit the left eye and face. She has had difficulty seeing out of the left eye for the past 3 weeks. She bit her lip last evening with a seizure. History of multiple seizure toxicity. PAST MEDICAL HISTORY: 1. Hypertension. 2. Headaches. 3. Anxiety. 4. Depression. 5. Seizures. ALLERGIES: NO KNOWN DRUG ALLERGIES. MEDICATIONS: As above, also Risperdal 3 mg q. 12 hours. Dilantin to be exact was 100 mg 3 pills three times a day on her bottle and not what was recorded in the emergency room and this may be part of her problem. Citalopram 40 a day. REVIEW OF SYSTEMS: She denied diabetes, hypercholesterolemia, myocardial infarction, CABG, cardiac arrhythmia, atrial fibrillation, coumadin, renal, hepatic or pulmonary disease, thyroid disease, diabetes, lupus, ulcer, cancer or stroke. SOCIAL HISTORY: Not a smoker or a drinker. No drugs. She lives by herself. FAMILY HISTORY: Negative for cancer or seizures. Positive for stroke in her mother. PHYSICAL EXAM: VITAL SIGNS: Afebrile, 94, 166/80. NECK: There were no carotid bruits. HEART: Regular rhythm. I did not detect a murmur. NEUROLOGIC: Pupils are equal. Visual alva are full. Extraocular movements intact without nystagmus. The sclera does have hemorrhage in it in the left eye. Tongue was midline. No drift. Normal strength in the upper and lower extremities bilaterally. Toes are downgoing bilaterally. DTRs are trace throughout. Pinprick is intact throughout. She is awake and alert. Speech is slightly slurred, but she can get better and straighten it out as I talk to her more. She is not aphasic. LABS: Her CBC is normal. Sed rate was normal back in 2002. Urine drug screen is positive for cocaine here. Dilantin level yesterday 37. It was 39 on 05/30/2017. She has had multiple Dilantin toxicities dating back to 2002. Other labs, BMP is normal. LFTs are normal. CPK is normal. Albumin is 3.5. B12 was normal in 2001. TSH normal in 2002. Coags are normal. CBC was normal. CT scan of her cervical spine, no fracture. CAT scan of her brain was read as negative. Chest x-ray minimal atelectasis only. MRI of the brain in 2011 with and without contrast was normal. Other labs, the last EEG in April of this year, some intermittent sharp waves and discharges left more than right read by Dr. Rizzo. That is the first positive EEG she has had here that was read as intermixed sharply contoured waves, questionable sharp discharges left more than right. Otherwise, she has multiple negative EEGs here. IMPRESSION: Dilantin toxicity. I am going to stop her Dilantin and we can start her on Vimpat 100 twice a day for a week and then up to 200 twice a day and she will have to followup with Dr. Knott as an outpatient. She obviously has been positive for cocaine several times including in April and she needs to stop doing cocaine as that can cause seizures. We will check an EEG on her, but she can probably be discharged when her Dilantin level normalizes. MD CECILIA Blair/GARRETT , 09:27 AM , 10:18 AM
[2017-06-18 11:00] LABS: AUTOMATED NEUTROPHIL # 3.8 TH/MM3 (1.8-7.7); BASOPHIL # 0.1 TH/MM3 (0-0.2); BASOPHIL % 0.8 % (0.0-2.0); EOSINOPHIL # 0.1 TH/MM3 (0-0.4); EOSINOPHIL % 1.9 % (0.0-4.0); HEMOGLOBIN 13.7 GM/DL (11.6-15.3); LYMPH % 40.6 % (9.0-44.0); LYMPHOCYTE # 3.2 TH/MM3 (1.0-4.8); MEAN CELL VOLUME 91.2 FL (80.0-100.0); MEAN CORPUSCULAR HEMOGLOBIN 30.5 PG (27.0-34.0); MEAN CORPUSCULAR HGB CONC 33.5 % (32.0-36.0); MEAN PLATELET VOLUME 7.3 FL (7.0-11.0); MONO % 8.6 % (0.0-8.0); MONOCYTE # 0.7 TH/MM3 (0-0.9); NEUT % 48.1 % (16.0-70.0); PLATELET COUNT 439 TH/MM3 (150-450); RED CELL DISTRIBUTION WIDTH 17.4 % (11.6-17.2); WHITE BLOOD COUNT 7.9 TH/MM3 (4.0-11.0)
--- NOTE | 2017-06-18 12:14 | HHI.PR ---
Subjective Remarks Follow up for seizure, fall, left eye trauma. The patient states yesterday she had a seizure and hit her face and lip. The patient states she knew she had a seizure because she had urinary incontinence. Seizure not witnessed. She states she didn't come to the ED immediately until she realized she had pain in the left eye and was unable to see. She states she already has poor vision in the right eye as well. She reports stopping her dilantin on her own 1 week ago because it was making her dizzy and drowsy. She reports compliance with her other medications including lamictal, gabapentin, and keppra. She has no other medical complaints at this time. No reported seizures since arrival. Still has pain and decreased vision in the left eye. Objective Vitals Vital Signs Date Time Temp Pulse Resp B/P (MAP) Pulse Ox O2 Delivery O2 Flow Rate FiO2 06/18/17 08:00 75 24 166/80 (108) 95 Room Air 06/18/17 07:00 73 19 96 Room Air 06/18/17 00:14 20 98 Room Air 06/18/17 00:13 78 20 149/90 (109) 98 Room Air 06/17/17 20:57 98.0 94 20 115/77 (90) 98 Room Air 06/17/17 20:00 97.9 82 18 115/67 (83) 99 Result Diagram: 06/18/17 0959 06/18/17 0332 Imaging Last Impressions Head CT 06/17/172111 Signed Impressions: Service Date/Time: June 21:33 - CONCLUSION: 1. Negative noncontrast CT brain. Yovany Chen MD Chest X-Ray 06/17/172111 Signed Impressions: Service Date/Time: June 21:21 - CONCLUSION: Minimal left base atelectasis. Otherwise negative. Sabino Chua MD Cervical Spine CT 06/17/172111 Signed Impressions: Service Date/Time: June 21:33 - CONCLUSION: Straightening of the cervical lordosis. No evidence of compression fracture or spondylolisthesis. Yovany Chen MD Maxillofacial CT 06/17/17 0000 Signed Impressions: Service Date/Time: June 21:33 - CONCLUSION: 1. No facial bone fracture seen. 2. Left preseptal soft tissue swelling about the orbit. Yovany Chen MD Objective Remarks GENERAL: Well-nourished, well-developed middle aged female patient in NAD. SKIN: Warm and dry. No rash. HEENT: Normocephalic. Left eye subconjunctival hemorrhage and chemosis. ENT: No nasal bleeding or discharge. Mucous membranes pink and moist. CARDIOVASCULAR: Regular rate and rhythm. S1, S2 noted. No murmur appreciated. RESPIRATORY: No accessory muscle use. Clear to auscultation. Breath sounds equal bilaterally. GASTROINTESTINAL: Abdomen soft, non-tender, nondistended. Normoactive bowel sounds x4. MUSCULOSKELETAL: No obvious deformities. Extremities without clubbing, cyanosis , or edema. NEUROLOGICAL: Awake and alert. No obvious cranial nerve deficits. Motor grossly within normal limits.Normal speech. PSYCHIATRIC: Appropriate mood and affect; insight and judgment normal. Medications and IVs Current Medications Medications (Trade) Dose Ordered Sig/Jarrett Route Start Time Stop Time Status Last Admin Sodium Chloride 1,000 ml @ 100 mls/hr Q10H IV 3 00:33 06/18/17 13:06 (NS Flush) 2 ml UNSCH PRN IV FLUSH 06/18/17 00:45 (NS Flush) 2 ml BID IV FLUSH 06/18/17 09:00 06/18/17 09:41 (Reglan Inj) 5 mg Q6H PRN IV PUSH 06/18/17 00:45 (Narcan Inj) 0.4 mg UNSCH PRN IV PUSH 06/18/17 00:45 (Paula-Colace) 1 tab BID PO 06/18/17 09:00 06/18/17 09:41 (Milk Of Magnesia Liq) 30 ml Q12H PRN PO 06/18/17 00:45 (Senokot) 17.2 mg Q12H PRN PO 06/18/17 00:45 (Dulcolax Supp) 10 mg DAILY PRN RECTAL 06/18/17 00:45 (Lactulose Liq) 30 ml DAILY PRN PO 06/18/17 00:45 (Ativan Inj) 2 mg Q10M PRN IV PUSH 06/18/17 00:45 (Norvasc) 5 mg DAILY PO 06/18/17 09:00 06/18/17 09:42 (CeleXA) 40 mg HS PO 06/18/17 21:00 (Neurontin) 300 mg QID PO 06/18/17 09:00 06/18/17 13:11 (LaMICtal) 50 mg BID PO 06/18/17 09:00 06/18/17 09:41 (Keppra) 500 mg TID PO 06/18/17 09:00 06/18/17 13:09 (risperDAL) 3 mg Q12HR PO 06/18/17 09:00 06/18/17 09:41 (Pred Forte 1% Opth Susp) 1 drop QID LEFT EYE 06/18/17 13:00 06/18/17 15:22 (Vimpat) 100 mg BID PO 06/18/17 09:30 06/18/17 13:05 (Vasotec Inj) 1.25 mg Q6H PRN IV PUSH 06/18/17 14:30 A/P Assessment and Plan 51-year-old female with a past medical history significant for hypertension and seizure disorder presents to the emergency department for evaluation of ongoing seizures and trauma to the left eye. Seizure with hx of Seizure Disorder: presented on Dilantin, Keppra, Lamictal, Gabapentin. Dilantin level supratherapeutic at 37.2. Patient is known to Dr. Knott. UDS positive for cocaine. -Head CT images reviewed, unremarkable -Dilantin discontinued -Continue patient's gabapentin, Lamictal, Keppra -Consult neurology, appreciate recommendations -Started on Vimpat dosed at 100mg bid x1 week, then increased to 200mg bid -EEG pending -Monitor neuro checks, seizure precautions -Ativan prn seizure -Counseled on cocaine use, likely contributing to seizure Dilantin Toxicity: Dilantin level 37.2 --> 39.8. Patient claims she stopped taking this 1 week ago because it made her drowsy/dizzy. Patient also has poor vision, possibly she is mistakenly still taking this med. -dilantin discontinued -monitor dilantin level Traumatic iritis: secondary to fall -Ophthalmology consulted, appreciate recommendations -Started on prednisolone acetate 1% QID OS. Hypertension -Continue home amlodipine Depression -Continue home Celexa and Risperdal Cocaine abuse -UDS positive for cocaine -counseled on cessation DVT Prophylaxis: teds/SCDs Discharge Planning Possible discharge tomorrow. Awaiting EEG and improvement of dilantin toxicity. Marivel Dow PA-C Jun 18, 2017 12:14 pm
[2017-06-18] MEDS: LACOSAMIDE 100 MG TAB PO SCH ×2 (13:05→21:24)
[2017-06-18] MEDS ORDERED: ENALAPRILAT 1.25 MG/ML VIAL IV PUSH PRN (14:30)
[2017-06-18] MEDS: prednisoLONE ACETATE 1% OPHT SUSP 5 ML BTL LEFT EYE SCH ×3 (15:22→21:25)
[2017-06-18] MEDS: CITALOPRAM HYDROBROMIDE 40 MG TAB PO SCH (21:24)
[2017-06-19] VITALS (9 sets, daily range): BP systolic 128–161; BP diastolic 62–83; PULSE 72–95; RESP 16–18; TEMP 97.8–98.7; O2SAT 93–98
[2017-06-19] MEDS: SODIUM CHLOR 0.9% 1000 ML INJ 1,000 ML IV SCH (06:00)
--- NOTE | 2017-06-19 07:26 | HHI.PR ---
Subjective Remarks Follow-up seizure and Dilantin toxicity. Occasional dizziness but no recurrence of seizure. Reinforce fall precautions. Discussed with nursing Objective Vitals Vital Signs Date Time Temp Pulse Resp B/P (MAP) Pulse Ox O2 Delivery O2 Flow Rate FiO2 06/19/17 04:15 82 06/19/17 03:15 98.0 72 18 135/62 (86) 93 06/19/17 00:17 75 06/18/17 23:41 97.9 80 18 142/67 (92) 95 06/18/17 21:20 74 06/18/17 20:12 98.6 85 18 121/69 (86) 96 06/18/17 16:36 98.1 86 24 125/66 (85) 94 06/18/17 15:46 75 06/18/17 15:44 155/87 (109) 06/18/17 13:41 96.5 85 16 167/83 (111) 99 06/18/17 13:12 81 18 124/99 (107) 97 Room Air 06/18/17 08:00 75 24 166/80 (108) 95 Room Air I/O 06/18/17 06/18/17 06/18/17 06/19/17 06/19/17 06/19/17 07:00 15:00 23:00 07:00 15:00 23:00 Intake Total 1000 ml 1000 ml Balance 1000 ml 1000 ml Intake IV Total 1000 ml 1000 ml # Voids 1 Result Diagram: 06/18/17 0959 06/18/17 0332 Imaging Last Impressions Head CT 06/17/172111 Signed Impressions: Service Date/Time: June 21:33 - CONCLUSION: 1. Negative noncontrast CT brain. Yovany Chen MD Chest X-Ray 06/17/172111 Signed Impressions: Service Date/Time: June 21:21 - CONCLUSION: Minimal left base atelectasis. Otherwise negative. Sabino Chua MD Cervical Spine CT 06/17/172111 Signed Impressions: Service Date/Time: June 21:33 - CONCLUSION: Straightening of the cervical lordosis. No evidence of compression fracture or spondylolisthesis. Yovany Chen MD Maxillofacial CT 06/17/17 0000 Signed Impressions: Service Date/Time: June 21:33 - CONCLUSION: 1. No facial bone fracture seen. 2. Left preseptal soft tissue swelling about the orbit. Yovany Chen MD Objective Remarks GENERAL: Well-nourished, well-developed middle aged female patient in NAD. SKIN: Warm and dry. No rash. CARDIOVASCULAR: Regular rate and rhythm. S1, S2 noted. No murmur appreciated. RESPIRATORY: No accessory muscle use. Clear to auscultation. Breath sounds equal bilaterally. GASTROINTESTINAL: Abdomen soft, non-tender, nondistended. Normoactive bowel sounds x4. MUSCULOSKELETAL: No obvious deformities. Extremities without clubbing, cyanosis , or edema. NEUROLOGICAL: Awake and alert. No obvious cranial nerve deficits. Motor grossly within normal limits.Normal speech. PSYCHIATRIC: Appropriate mood and affect; insight and judgment normal. Procedures None A/P Problem List: (1) Traumatic iritis ICD Code: H20.9 - Unspecified iridocyclitis Status: Acute (2) Seizure ICD Code: R56.9 - Convulsions Status: Chronic (3) Phenytoin toxicity ICD Code: T42.0X1A - Poisoning by hydantoin derivatives, accidental ( unintentional), initial encounter Status: Acute (4) Cocaine abuse ICD Code: F14.10 - Cocaine abuse, uncomplicated Status: Acute Assessment and Plan 51-year-old female with a past medical history significant for hypertension and seizure disorder presents to the emergency department for evaluation of ongoing seizures and trauma to the left eye. Seizure with hx of Seizure Disorder: presented on Dilantin, Keppra, Lamictal, Gabapentin. Dilantin level still supratherapeutic. Patient is known to Dr. Knott. UDS positive for cocaine. -Head CT images reviewed, unremarkable -Dilantin discontinued -Continue patient's gabapentin, Lamictal, Keppra -Consult neurology, appreciate recommendations -Started on Vimpat dosed at 100mg bid x1 week, then increased to 200mg bid -EEG pending -Monitor neuro checks, seizure precautions -Ativan prn seizure -Counseled on cocaine use, likely contributing to seizure Dilantin Toxicity: Dilantin level 33. Patient claims she stopped taking this 1 week ago because it made her drowsy/dizzy. Patient also has poor vision, possibly she is mistakenly still taking this med. -dilantin discontinued. Fall precautions -monitor dilantin level Traumatic iritis: secondary to fall -Ophthalmology consulted, appreciate recommendations -Started on prednisolone acetate 1% QID OS. Hypertension -Continue home amlodipine Depression -Continue home Celexa and Risperdal Cocaine abuse -UDS positive for cocaine -counseled on cessation DVT Prophylaxis: teds/SCDs Discharge Planning Possible discharge awaiting EEG and improvement of dilantin toxicity. Problem Qualifiers (1) Phenytoin toxicity: Qualified Codes: T42.0X1A - Poisoning by hydantoin derivatives, accidental ( unintentional), initial encounter Manuel Ashton MD Jun 19, 2017 07:26
[2017-06-19 07:28] LABS: BICARBONATE 26.9 MEQ/L (21.0-32.0); CALCIUM 8.2 MG/DL (8.5-10.1); CREATININE 0.65 MG/DL (0.50-1.00); MAGNESIUM 2.1 MG/DL (1.5-2.5)
[2017-06-19 08:00] LABS: PHENYTOIN (DILANTIN) 33.7 MCG/ML (10.0-20.0)
[2017-06-19] MEDS: SODIUM CHLORIDE 0.9% FLUSH 10 ML FLUSH IV FLUSH SCH ×2 (09:00→23:45)
[2017-06-19] MEDS ORDERED: PNEUMOCOCCAL POLYVALENT INJ 25 MCG/0.5 ML SYR IM ONE (10:00)
[2017-06-19] MEDS: LACOSAMIDE 100 MG TAB PO SCH (11:32)
[2017-06-19] MEDS: lamoTRIgine 25 MG TAB PO SCH ×2 (11:33→23:47)
[2017-06-19] MEDS: GABAPENTIN 300 MG CAP PO SCH ×4 (11:33→23:46)
[2017-06-19] MEDS: DOCUSATE SODIUM 50 MG/SENNA 8.6 MG TAB PO SCH ×2 (11:34→21:00)
[2017-06-19] MEDS: levETIRAcetam 500 MG TAB PO SCH ×3 (11:34→18:56)
[2017-06-19] MEDS: amLODIPine BESYLATE 5 MG TAB PO SCH (11:34)
[2017-06-19] MEDS: prednisoLONE ACETATE 1% OPHT SUSP 5 ML BTL LEFT EYE SCH ×4 (11:36→23:46)
[2017-06-19] MEDS: risperiDONE 3 MG TAB PO SCH ×2 (12:16→23:47)
--- NOTE | 2017-06-19 12:54 | HHI.PR ---
Subjective Remarks no more sz Objective Vital Signs Date Time Temp Pulse Resp B/P (MAP) Pulse Ox O2 Delivery O2 Flow Rate FiO2 06/19/17 11:22 98.2 79 18 161/72 (101) 98 06/19/17 08:58 98.4 78 18 141/70 (93) 97 06/19/17 04:15 82 06/19/17 03:15 98.0 72 18 135/62 (86) 93 06/19/17 00:17 75 06/18/17 23:41 97.9 80 18 142/67 (92) 95 06/18/17 21:20 74 06/18/17 20:12 98.6 85 18 121/69 (86) 96 06/18/17 16:36 98.1 86 24 125/66 (85) 94 06/18/17 15:46 75 06/18/17 15:44 155/87 (109) 06/18/17 13:41 96.5 85 16 167/83 (111) 99 06/18/17 13:12 81 18 124/99 (107) 97 Room Air I/O 06/18/17 06/18/17 06/18/17 06/19/17 06/19/17 06/19/17 07:00 15:00 23:00 07:00 15:00 23:00 Intake Total 1000 ml 1000 ml Balance 1000 ml 1000 ml Intake IV Total 1000 ml 1000 ml # Voids 1 Result Diagram: 06/18/17 0959 06/19/17 0635 Objective Remarks awake alert gait steady counts fingers os Assessment and Plan Assessment and Plan imp vimpat dil dc level 33 eeg pend i dw case with dr gilman she can dc when dil down to 20 Spenser Newton MD Jun 19, 2017 12:54
[2017-06-19] MEDS: diphenhydrAMINE HCL 25 MG CAP PO PRN ×2 (16:59→23:48)
--- NOTE | 2017-06-19 22:45 | EKG ---
Date Performed: 06/17/2017 Time Performed: 23:13:20 PTAGE: 51 years EKG: Sinus rhythm NONSPECIFIC T-WAVE ABNORMALITY BORDERLINE ECG PREVIOUS TRACING : 10/02/2015 09.51 Since the prior tracing, there has been no significant stone DOCTOR: Logan Suh Interpretating Date/Time 06/19/2017 22:44:08
[2017-06-19] MEDS: CITALOPRAM HYDROBROMIDE 40 MG TAB PO SCH (23:46)
[2017-06-20] VITALS (7 sets, daily range): BP systolic 157–185; BP diastolic 70–91; PULSE 62–96; RESP 16–20; TEMP 97.8–98.2; O2SAT 95–98
[2017-06-20] MEDS: LACOSAMIDE 100 MG TAB PO SCH ×2 (00:55→11:22)
--- NOTE | 2017-06-20 07:12 | HHI.PR ---
Subjective Remarks Follow-up Dilantin toxicity. Clinically better she got out of bed and ambulated without dizziness. Requesting bedside commode. Discussed with nursing and case management. Objective Vitals Vital Signs Date Time Temp Pulse Resp B/P (MAP) Pulse Ox O2 Delivery O2 Flow Rate FiO2 06/20/17 05:51 75 16 157/91 (113) 95 06/20/17 05:44 98.0 74 18 185/80 (115) 95 06/20/17 03:42 73 06/20/17 01:24 97.8 77 18 165/85 (111) 95 06/20/17 00:06 76 06/19/17 20:40 97.8 84 18 131/74 (93) 95 06/19/17 20:10 95 06/19/17 16:27 98.7 79 16 128/83 (98) 95 06/19/17 11:22 98.2 79 18 161/72 (101) 98 06/19/17 08:58 98.4 78 18 141/70 (93) 97 06/19/17 08:00 80 I/O 06/19/17 06/19/17 06/19/17 06/20/17 06/20/17 06/20/17 07:00 15:00 23:00 07:00 15:00 23:00 Intake Total 1000 ml 2000 ml Output Total 951 ml Balance 1000 ml 1049 ml Intake Oral 1500 ml IV Total 1000 ml 500 ml Output Urine Total 950 ml Stool Total 1 ml Result Diagram: 06/18/17 0959 06/19/17 0635 Imaging Last Impressions Head CT 06/17/172111 Signed Impressions: Service Date/Time: June 21:33 - CONCLUSION: 1. Negative noncontrast CT brain. Yovany Chen MD Chest X-Ray 06/17/172111 Signed Impressions: Service Date/Time: June 21:21 - CONCLUSION: Minimal left base atelectasis. Otherwise negative. Sabino Chua MD Cervical Spine CT 06/17/172111 Signed Impressions: Service Date/Time: June 21:33 - CONCLUSION: Straightening of the cervical lordosis. No evidence of compression fracture or spondylolisthesis. Yovany Chen MD Maxillofacial CT 06/17/17 0000 Signed Impressions: Service Date/Time: June 21:33 - CONCLUSION: 1. No facial bone fracture seen. 2. Left preseptal soft tissue swelling about the orbit. Yovany Chen MD Objective Remarks GENERAL: Well-nourished, well-developed middle aged female patient in NAD. SKIN: Warm and dry. No rash. CARDIOVASCULAR: Regular rate and rhythm. S1, S2 noted. No murmur appreciated. RESPIRATORY: No accessory muscle use. Clear to auscultation. Breath sounds equal bilaterally. GASTROINTESTINAL: Abdomen soft, non-tender, nondistended. Normoactive bowel sounds x4. MUSCULOSKELETAL: No obvious deformities. Extremities without clubbing, cyanosis , or edema. NEUROLOGICAL: Awake and alert. No obvious cranial nerve deficits. Motor grossly within normal limits.Normal speech. PSYCHIATRIC: Appropriate mood and affect; insight and judgment normal. Procedures None A/P Problem List: (1) Traumatic iritis ICD Code: H20.9 - Unspecified iridocyclitis Status: Acute (2) Seizure ICD Code: R56.9 - Convulsions Status: Chronic (3) Phenytoin toxicity ICD Code: T42.0X1A - Poisoning by hydantoin derivatives, accidental ( unintentional), initial encounter Status: Acute (4) Cocaine abuse ICD Code: F14.10 - Cocaine abuse, uncomplicated Status: Acute Assessment and Plan 51-year-old female with a past medical history significant for hypertension and seizure disorder presents to the emergency department for evaluation of ongoing seizures and trauma to the left eye. Seizure with hx of Seizure Disorder: presented on Dilantin, Keppra, Lamictal, Gabapentin. Dilantin level down to 23, patient is asymptomatic able to ambulate. Patient is known to Dr. Knott. UDS positive for cocaine. -Head CT images reviewed, unremarkable -Dilantin discontinued -Continue patient's gabapentin, Lamictal, Keppra -Consult neurology, appreciate recommendations -Started on Vimpat dosed at 100mg bid x1 week, then increased to 200mg bid -EEG pending -Monitor neuro checks, seizure precautions. No driving, swimming alone, climbing heights and carrying young children -Ativan prn seizure -Counseled on cocaine use, likely contributing to seizure Dilantin Toxicity: Dilantin level 33. Patient claims she stopped taking this 1 week ago because it made her drowsy/dizzy. Patient also has poor vision, possibly she is mistakenly still taking this med. -dilantin discontinued. Fall precautions -Asymptomatic at this time Traumatic iritis: secondary to fall -Ophthalmology consulted, appreciate recommendations -Started on prednisolone acetate 1% QID OS. Hypertension -Increase Norvasc for better control Depression -Continue home Celexa and Risperdal Cocaine abuse -UDS positive for cocaine -counseled on cessation DVT Prophylaxis: teds/SCDs Discharge Planning Possible discharge today if cleared by PT Problem Qualifiers (1) Phenytoin toxicity: Qualified Codes: T42.0X1A - Poisoning by hydantoin derivatives, accidental ( unintentional), initial encounter Manuel Ashton MD Jun 20, 2017 07:12
--- NOTE | 2017-06-20 08:33 | HHI.PR ---
Subjective Remarks no more sz Objective Vital Signs Date Time Temp Pulse Resp B/P (MAP) Pulse Ox O2 Delivery O2 Flow Rate FiO2 06/20/17 05:51 75 16 157/91 (113) 95 06/20/17 05:44 98.0 74 18 185/80 (115) 95 06/20/17 03:42 73 06/20/17 01:24 97.8 77 18 165/85 (111) 95 06/20/17 00:06 76 06/19/17 20:40 97.8 84 18 131/74 (93) 95 06/19/17 20:10 95 06/19/17 16:27 98.7 79 16 128/83 (98) 95 06/19/17 11:22 98.2 79 18 161/72 (101) 98 06/19/17 08:58 98.4 78 18 141/70 (93) 97 I/O 06/19/17 06/19/17 06/19/17 06/20/17 06/20/17 06/20/17 07:00 15:00 23:00 07:00 15:00 23:00 Intake Total 1000 ml 2000 ml 1000 ml Output Total 951 ml Balance 1000 ml 1049 ml 1000 ml Intake Oral 1500 ml 1000 ml IV Total 1000 ml 500 ml Output Urine Total 950 ml Stool Total 1 ml # Voids 1 # Bowel Movements 1 Result Diagram: 06/18/17 0959 06/19/17 0635 Objective Remarks awake alert Assessment and Plan Assessment and Plan imp vimpat dil dc level 33 eeg pend i dw case with dr gilman she can dc when dil down to 20 06/20/17 doing well await level today stable neuro i will sign off Spenser Joy MD Jun 20, 2017 08:33
[2017-06-20] MEDS: DOCUSATE SODIUM 50 MG/SENNA 8.6 MG TAB PO SCH (09:00)
[2017-06-20] MEDS: SODIUM CHLORIDE 0.9% FLUSH 10 ML FLUSH IV FLUSH SCH (09:00)
[2017-06-20] MEDS: amLODIPine BESYLATE 5 MG TAB PO SCH (11:21)
[2017-06-20] MEDS: GABAPENTIN 300 MG CAP PO SCH ×2 (11:22→13:00)
[2017-06-20] MEDS: lamoTRIgine 25 MG TAB PO SCH (11:22)
[2017-06-20] MEDS: risperiDONE 3 MG TAB PO SCH (11:23)
[2017-06-20] MEDS: levETIRAcetam 500 MG TAB PO SCH ×2 (11:23→13:00)
[2017-06-20] MEDS: prednisoLONE ACETATE 1% OPHT SUSP 5 ML BTL LEFT EYE SCH ×2 (11:25→13:00)
--- NOTE | 2017-06-20 13:44 | HHI.FF ---
Face to Face Verification Diagnosis: (1) Seizure (2) Phenytoin toxicity (3) Traumatic iritis (4) HTN (hypertension) Physical Therapy Order: Evaluate and Treat, Improve ambulation, Strength and gait training Home Health Nursing Order: Medical education Signs/symptoms of disease process Nursing assessment with vital signs Economics Professor Order: To Evaluate: Living conditions/environment, Support services Order: To Provide: Long range planning, Community services I have seen patient Tenisha Knott on 06/20/17. My clinical findings support the need for the requested home health care services because: Ltd mobility - disease progression Deconditioned w/ increased weakness Med compliance is questionable Limited ability to care for self Impaired cognition/judgement High risk of falls I certify that my clinical findings support that this patient is homebound because: Unsteady gait/balance Unsafe to leave home unassisted Unable to use public transportation Marivel Dow PA-C Jun 20, 2017 13:44
--- NOTE | 2017-06-20 13:46 | HHI.DS ---
Discharge Summary Admission Date Jun 18, 2017 at 00:47 Discharge Date: Jun 20, 2017 Admitting Diagnosis phenytoin toxicity; non-compliance; seizure (1) Traumatic iritis ICD Code: H20.9 - Unspecified iridocyclitis Diagnosis: Principal Status: Acute (2) Seizure ICD Code: R56.9 - Convulsions Diagnosis: Principal Status: Chronic (3) Phenytoin toxicity ICD Code: T42.0X1A - Poisoning by hydantoin derivatives, accidental ( unintentional), initial encounter Diagnosis: Principal Status: Acute (4) Cocaine abuse ICD Code: F14.10 - Cocaine abuse, uncomplicated Diagnosis: Principal Status: Acute Procedures None Brief History - From Admission As do 1-year-old female with a past medical history significant for hypertension and seizure disorder presents to the emergency department for evaluation of ongoing seizures. The patient reports her neurologist is Dr. Knott. She states she is compliant with her medication. Despite that she has had multiple recent seizures most recently last night. She states that during one of her seizures when she was in the kitchen, she fell onto her face and has had a red, swollen eye with visual changes and pain since that time. Patient's Dilantin level is supratherapeutic at 37.2. She denies any chest pain or shortness of breath. No nausea/vomiting/diarrhea. No lateralizing signs/ symptoms. CBC/BMP: 06/18/17 0959 06/19/17 0635 Significant Findings Laboratory Tests Test 06/17/17 21:35 06/18/17 03:32 06/18/17 05:20 06/18/17 09:59 Lymphocytes (%) (Auto) 46.4 % (9.0-44.0) Blood Urea Nitrogen 6 MG/DL (7-18) 5 MG/DL (7-18) Total Protein 8.5 GM/DL (6.4-8.2) Alkaline Phosphatase 171 U/L (45-117) 157 U/L (45-117) Estimat Glomerular Filtration Rate 86 ML/MIN (>89) Creatine Kinase MB LESS THAN 0.5 NG/ML Troponin I LESS THAN 0.02 NG/ML Phenytoin (Dilantin) Level 37.2 MCG/ML (10.0-20.0) 39.8 MCG/ML (10.0-20.0) Albumin 3.0 GM/DL (3.4-5.0) Calcium Level 7.9 MG/DL (8.5-10.1) Urine Leukocyte Esterase SMALL (NEG) Urine Bacteria RARE /hpf (NONE) Urine Mucus FEW /lpf (OCC) Urine Cocaine Screen POS (NEG) Red Cell Distribution Width 17.4 % (11.6-17.2) Monocytes (%) (Auto) 8.6 % (0.0-8.0) Test 06/19/17 06:35 06/20/17 12:30 Blood Urea Nitrogen 5 MG/DL (7-18) Calcium Level 8.2 MG/DL (8.5-10.1) Phenytoin (Dilantin) Level 33.7 MCG/ML (10.0-20.0) 23.3 MCG/ML (10.0-20.0) Imaging Last Impressions Head CT 06/17/172111 Signed Impressions: Service Date/Time: June 21:33 - CONCLUSION: 1. Negative noncontrast CT brain. Yovany Chen MD Chest X-Ray 06/17/172111 Signed Impressions: Service Date/Time: June 21:21 - CONCLUSION: Minimal left base atelectasis. Otherwise negative. Sabino Chua MD Cervical Spine CT 06/17/172111 Signed Impressions: Service Date/Time: June 21:33 - CONCLUSION: Straightening of the cervical lordosis. No evidence of compression fracture or spondylolisthesis. Yovany Chen MD Maxillofacial CT 06/17/17 0000 Signed Impressions: Service Date/Time: June 21:33 - CONCLUSION: 1. No facial bone fracture seen. 2. Left preseptal soft tissue swelling about the orbit. Yovany Chen MD PE at Discharge GENERAL: Well-nourished, well-developed middle aged female patient in [facility]. SKIN: Warm and dry. No rash. CARDIOVASCULAR: Regular rate and rhythm. S1, S2 noted. No murmur appreciated. RESPIRATORY: No accessory muscle use. Clear to auscultation. Breath sounds equal bilaterally. GASTROINTESTINAL: Abdomen soft, non-tender, nondistended. Normoactive bowel sounds x4. MUSCULOSKELETAL: No obvious deformities. Extremities without clubbing, cyanosis , or edema. NEUROLOGICAL: Awake and alert. No obvious cranial nerve deficits. Motor grossly within normal limits.Normal speech. PSYCHIATRIC: Appropriate mood and affect; insight and judgment normal. Hospital Course 51-year-old female with a past medical history significant for hypertension and seizure disorder presents to the emergency department for evaluation of ongoing seizures and trauma to the left eye. Seizure with hx of Seizure Disorder: presented on Dilantin, Keppra, Lamictal, Gabapentin. Dilantin level down to 23, patient is asymptomatic able to ambulate. Patient is known to Dr. Knott. UDS positive for cocaine. -Head CT images reviewed, unremarkable -Dilantin discontinued -Continue patient's gabapentin, Lamictal, Keppra -Consult neurology, appreciate recommendations -Started on Vimpat dosed at 100mg bid x1 week, then increased to 200mg bid -EEG pending -Monitor neuro checks, seizure precautions. No driving, swimming alone, climbing heights and carrying young children -Ativan prn seizure -Counseled on cocaine use, likely contributing to seizure Dilantin Toxicity: Dilantin level 33. Patient claims she stopped taking this 1 week ago because it made her drowsy/dizzy. Patient also has poor vision, possibly she is mistakenly still taking this med. -dilantin discontinued. Fall precautions -Asymptomatic at this time Traumatic iritis: secondary to fall -Ophthalmology consulted, appreciate recommendations -Started on prednisolone acetate 1% QID OS. Hypertension -Increase Norvasc for better control Depression -Continue home Celexa and Risperdal Cocaine abuse -UDS positive for cocaine -counseled on cessation DVT Prophylaxis: teds/SCDs Pt Condition on Discharge: Stable Discharge Disposition: Disch w/ Home Health Serv Discharge Time: > 30 minutes Discharge Instructions DIET: Follow Instructions for: Heart Healthy Diet Manuel Ashton MD Jun 20, 2017 13:46
[2017-06-20] MEDS ORDERED: LACO100 PO ×2 (14:17→14:29)
[2017-06-20] MEDS ORDERED: AMLO10 PO ×2 (14:17→14:29)
[2017-06-20] MEDS ORDERED: PRED1SUS6 LEFT EYE (15:03)
--- NOTE | 2017-06-20 18:57 | MG ---
cc: Spenser Newton MD ELECTROENCEPHALOGRAM NUMBER: [id number] INDICATION: Breakthrough seizures, bipolar, risperdal, Keppra, Dilantin toxicity. DESCRIPTION: Recording shows 7 Hz, 60 mV diffuse rhythm. Sometimes 6 Hz diffuse slowing is noted. No epileptiform or seizure activity is noted. Some muscle artifact is seen occasionally. Hyperventilation was not performed. Photic stimulation is performed without significant posterior driving. IMPRESSION: Some mild diffuse theta slowing consistent with diffuse encephalopathy but no focal abnormality was noted, no seizure activity was seen. MD CECILIA Blair/ANU , 06:44 PM , 06:55 PM
== END 2017-06-20 17:58 | disposition home or self-care (01) ==
LOC: NEPC 19:02 → NEDA 06-18 00:47 → NEDH 06-18 14:37 → NEPGCP 06-18 16:26
PROVIDERS: ADMIT Internal Medicine; ATTEND Internal Medicine
DX: G40.909 Epilepsy, unspecified, not intractable, without status epilepticus (principal); S00.83XA Contusion of other part of head, initial encounter; S01.551A Open bite of lip, initial encounter; H20.9 Unspecified iridocyclitis; R06.02 Shortness of breath; E86.0 Dehydration; H11.32 Conjunctival hemorrhage, left eye; T42.0X5A Adverse effect of hydantoin derivatives, initial encounter; I10 Essential (primary) hypertension; F31.9 Bipolar disorder, unspecified; F14.90 Cocaine use, unspecified, uncomplicated; Z79.899 Other long term (current) drug therapy; Z23 Encounter for immunization; Z91.19 Patient's noncompliance with other medical treatment and regimen; W19.XXXA Unspecified fall, initial encounter
CPT/HCPCS: 70450; 70486; 71045; 72125; 80048; 80053; 80185; 80307; 81001; 82550; 82552; 83735; 84484; 85025; 85610; 85730; 90732; 93005; 95819; 96360; 96361; 97162; 99285; G0378; G8987; G8988; J7030

== ENCOUNTER 2017-06-29 18:01 | Emergency (ER) | payer MEDICARE, MEDICAID ==
[~2017-06-29 18:01] MED LIST changes: +AMLO10 PO; -AMLO5 PO; -DILA100C PO; +LACO100 PO; +LAMO25 PO; -MIRT30TA PO; +PRED1SUS6 LEFT EYE; -QUET1TAB10 PO; +RISP3 PO
[2017-06-29 18:18] VITALS: BP 122/69; PULSE 89; RESP 22; O2SAT 92
[2017-06-29] MEDS ORDERED: SODIUM CHLOR 0.9% 1000 ML INJ 1,000 ML IV ONE (18:21)
[2017-06-29 18:24] VITALS: O2SAT 92
--- NOTE | 2017-06-29 18:29 | PD ---
HPI Chief Complaint: Seizure Time Seen by Provider: 18:12 Travel History International Travel<30 days: No Contact w/Intl Traveler<30days: No History of Present Illness HPI 51-year-old -[place] female presents via EMS for reports of seizures uncontrolled with current medications. Patient has been seen multiple times for this in the past. Patient recently discharged a week ago after being found to be possibly Dilantin toxic. Patient was also found to be positive for cocaine at that time. Patient's current meds include Keppra, Vimpat, and gabapentin daily. Patient reports that she had 2 seizures today. EMS found her to be alert and oriented after a reported "grand mal" seizure at her home today. Patient was noted to be alert and oriented 3 without signs of injury or bowel or bladder incontinence. Patient is complaining of lower back pain, and pain in her left arm. She has what appears to be a facial tic when I talked to her. She denies recent illness. She denies urinary symptoms. She has no known drug allergies. PFSH Past Medical History Arthritis: No Asthma: No Autoimmune Disease: No Blood Disorders: No Anxiety: Yes Depression: Yes Heart Rhythm Problems: No Cancer: No Cardiovascular Problems: Yes High Cholesterol: No Chemotherapy: No Chest Pain: No Congestive Heart Failure: No COPD: No Cerebrovascular Accident: No Diabetes: Yes Diminished Hearing: No Endocrine: No Gastrointestinal Disorders: No Genitourinary: No Headaches: Yes Hypertension: Yes Immune Disorder: No Implanted Vascular Access Dvce: No Musculoskeletal: No Neurologic: Yes (seizures) Psychiatric: Yes Reproductive: No Respiratory: No Immunizations Current: Yes Migraines: Yes Radiation Therapy: No Seizures: Yes Sleep Apnea: No Thyroid Disease: No PNEUMOCCOCAL Vaccine (Year): 2 Menopausal: Yes : 2 Para: 2 Miscarriage: 0 : 0 Tubal Ligation: Yes Past Surgical History Abdominal Surgery: No Cardiac Surgery: No Ear Surgery: No Endocrine Surgery: No Eye Surgery: No Genitourinary Surgery: No Gynecologic Surgery: Yes (TUBAL LIGATION) Neurologic Surgery: No Oral Surgery: No Thoracic Surgery: No Other Surgery: No (pt denies history of surgury) Social History Alcohol Use: No Tobacco Use: No Substance Use: No Allergies-Medications (Allergen,Severity, Reaction): Coded Allergies: No Known Allergies (Verified Allergy, Unknown, 06/29/17) Reported Meds & Prescriptions Reported Meds & Active Scripts Active Prednisolone Acetate Opth 1% Susp 1 Drop LEFT EYE QID 7 Days Vimpat (Lacosamide) 100 Mg Tab 100 Mg PO BID Take Vimpat 100mg twice a day x5days, Then increase to 200mg twice a day. Norvasc (Amlodipine Besylate) 10 Mg Tab 10 Mg PO DAILY Walker with Front Wheels (Device) 1 Mis Mis Ea .XX DIRECTED Reported Risperdal (Risperidone) 3 Mg Tab 3 Mg PO Q12HR Lamictal (Lamotrigine) 25 Mg Tab 50 Mg PO BID Gabapentin 300 Mg Cap 300 Mg PO QID Levetiracetam 500 Mg Tab 500 Mg PO TID Citalopram (Citalopram Hydrobromide) 40 Mg Tab 40 Mg PO HS Review of Systems Except as stated in HPI: all other systems reviewed are Neg General / Constitutional: No: Fever Eyes: No: Visual changes HENT: No: Headaches Cardiovascular: No: Chest Pain or Discomfort Respiratory: No: Shortness of Breath Gastrointestinal: No: Abdominal Pain Genitourinary: No: Dysuria Musculoskeletal: Positive: Arthralgias, Pain (See history of present illness per) Skin: No Rash Neurologic: Positive: Seizures (See history of present illness per), No: Weakness Psychiatric: No: Depression Endocrine: No: Polydipsia Hematologic/Lymphatic: No: Easy Bruising Physical Exam Narrative GENERAL: Patient appears in no obvious distress. She seems somewhat histrionic with a tick when she speaks. SKIN: Warm and dry. Normal color. Normal turgor. No signs of trauma. HEAD: Atraumatic. Normocephalic. Nontender EYES: Pupils equal and round. No scleral icterus. No injection or drainage. ENT: No nasal bleeding or discharge. Mucous membranes pink and moist. No dental injuries noted. No tongue injury. No buccal membrane injury. Pharynx is clear. Airways patent NECK: Trachea midline. Supple and nontender. CARDIOVASCULAR: Regular rate and rhythm. RESPIRATORY: No accessory muscle use. Clear to auscultation. Breath sounds equal bilaterally. GASTROINTESTINAL: Abdomen soft, non-tender, nondistended. Hepatic and splenic margins not palpable. MUSCULOSKELETAL: Extremities without clubbing, cyanosis, or edema. No obvious deformities. NEUROLOGICAL: Awake and alert. No obvious cranial nerve deficits. Motor grossly within normal limits. Five out of 5 muscle strength in the arms and legs. Normal speech. PSYCHIATRIC: Appropriate mood and affect; insight and judgment normal. Data Data Last Documented VS Vital Signs Date Time Temp Pulse Resp B/P (MAP) Pulse Ox O2 Delivery O2 Flow Rate FiO2 06/29/17 18:46 99.1 80 25 120/63 (82) 97 Room Air Orders Orders Complete Blood Count With Diff (06/29/17 18:21) Alcohol (Ethanol) (06/29/17 18:21) Phenytoin (Dilantin) (06/29/17 18:21) Drug Screen, Random Urine (06/29/17 18:21) Electrocardiogram (06/29/17 ) Blood Glucose (06/29/17 18:21) Ecg Monitoring (06/29/17 18:21) Iv Access Insert/Monitor (06/29/17 18:) Oximetry (06/29/17 18:21) Comprehensive Metabolic Panel (06/29/17 18:21) Sodium Chlor 0.9% 1000 Ml Inj (Ns 1000 M (06/29/17 18:21) Sodium Chloride 0.9% Flush (Ns Flush) (06/29/17 18:30) Urinalysis - C+S If Indicated (06/29/17 18:21) MDM Medical Decision Making Medical Screen Exam Complete: Yes Emergency Medical Condition: Yes Medical Record Reviewed: Yes Differential Diagnosis History of seizure disorder. Substance abuse. Malingering. Pseudoseizures. Possible medication toxicity. Narrative Course Patient appears medically stable at time of exam. IV access is obtained. Labs ordered including blood glucose, serum alcohol, CBC, CMP, urine drug screen , phenytoin level, and urinalysis. Patient is given 1000 mL of normal saline bolus. 1900 hrs. labs are still pending CARE the patient is turned over to Elliott Arceo PA-C. At change of shift. Final disposition will be determined by him Condition: Stable Caleb Sood Jun 29, 2017 18:29
[2017-06-29] MEDS ORDERED: SODIUM CHLORIDE 0.9% FLUSH 10 ML FLUSH IVF PRN (18:30)
[2017-06-29 18:46] VITALS: BP 120/63; PULSE 80; RESP 25; TEMP 99.1; O2SAT 97
[2017-06-29 19:24] LABS: AUTOMATED NEUTROPHIL # 9.9 TH/MM3 (1.8-7.7); BASOPHIL # 0.1 TH/MM3 (0-0.2); BASOPHIL % 0.4 % (0.0-2.0); EOSINOPHIL # 0.1 TH/MM3 (0-0.4); EOSINOPHIL % 0.7 % (0.0-4.0); HEMATOCRIT 38.9 % (35.0-46.0); HEMOGLOBIN 12.9 GM/DL (11.6-15.3); LYMPH % 22.5 % (9.0-44.0); LYMPHOCYTE # 3.2 TH/MM3 (1.0-4.8); MEAN CELL VOLUME 90.5 FL (80.0-100.0); MEAN CORPUSCULAR HGB CONC 33.1 % (32.0-36.0); MEAN PLATELET VOLUME 7.8 FL (7.0-11.0); MONO % 7.4 % (0.0-8.0); MONOCYTE # 1.1 TH/MM3 (0-0.9); PLATELET COUNT 460 TH/MM3 (150-450); RED CELL DISTRIBUTION WIDTH 16.7 % (11.6-17.2); WHITE BLOOD COUNT 14.3 TH/MM3 (4.0-11.0)
--- NOTE | 2017-06-29 19:26 | PD ---
Data Data Last Documented VS Vital Signs Date Time Temp Pulse Resp B/P (MAP) Pulse Ox O2 Delivery O2 Flow Rate FiO2 06/29/17 18:46 99.1 80 25 120/63 (82) 97 Room Air Orders Orders Complete Blood Count With Diff (06/29/17 18:21) Alcohol (Ethanol) (06/29/17 18:21) Phenytoin (Dilantin) (06/29/17 18:21) Drug Screen, Random Urine (06/29/17 18:21) Electrocardiogram (06/29/17 ) Blood Glucose (06/29/17 18:21) Ecg Monitoring (06/29/17 18:21) Iv Access Insert/Monitor (06/29/17 18:21) Oximetry (06/29/17 18:21) Comprehensive Metabolic Panel (06/29/17 18:21) Sodium Chlor 0.9% 1000 Ml Inj (Ns 1000 M (06/29/17 18:21) Sodium Chloride 0.9% Flush (Ns Flush) (06/29/17 18:30) Labs Laboratory Tests Test 06/29/17 18:55 06/29/17 19:54 White Blood Count 14.3 TH/MM3 Red Blood Count 4.30 MIL/MM3 Hemoglobin 12.9 GM/DL Hematocrit 38.9 % Mean Corpuscular Volume 90.5 FL Mean Corpuscular Hemoglobin 30.0 PG Mean Corpuscular Hemoglobin Concent 33.1 % Red Cell Distribution Width 16.7 % Platelet Count 460 TH/MM3 Mean Platelet Volume 7.8 FL Neutrophils (%) (Auto) 69.0 % Lymphocytes (%) (Auto) 22.5 % Monocytes (%) (Auto) 7.4 % Eosinophils (%) (Auto) 0.7 % Basophils (%) (Auto) 0.4 % Neutrophils # (Auto) 9.9 TH/MM3 Lymphocytes # (Auto) 3.2 TH/MM3 Monocytes # (Auto) 1.1 TH/MM3 Eosinophils # (Auto) 0.1 TH/MM3 Basophils # (Auto) 0.1 TH/MM3 CBC Comment DIFF FINAL Differential Comment Blood Urea Nitrogen 5 MG/DL Creatinine 0.86 MG/DL Random Glucose 99 MG/DL Total Protein 8.6 GM/DL Albumin 3.1 GM/DL Calcium Level 8.8 MG/DL Alkaline Phosphatase 167 U/L Aspartate Amino Transf (AST/SGOT) 38 U/L Alanine Aminotransferase (ALT/SGPT) 24 U/L Total Bilirubin 0.3 MG/DL Sodium Level 136 MEQ/L Potassium Level 4.6 MEQ/L Chloride Level 104 MEQ/L Carbon Dioxide Level 21.9 MEQ/L Anion Gap 10 MEQ/L Estimat Glomerular Filtration Rate 84 ML/MIN Phenytoin (Dilantin) Level 1.1 MCG/ML Ethyl Alcohol Level LESS THAN 3 MG/DL Urine Opiates Screen NEG Urine Barbiturates Screen NEG Urine Amphetamines Screen NEG Urine Benzodiazepines Screen NEG Urine Cocaine Screen POS Urine Cannabinoids Screen POS MDM Medical Record Reviewed: Yes Supervised Visit with SARAH: No Narrative Course See previous providers notes. I assumed care for this patient pending lab work. Briefly this is a 51-year-old female with reported history of seizure disorder as well as cocaine use. She presents after what she believes to be a seizure in her bed today. She reports that she had an episode of incontinence and she believes that she had a seizure. In regards to her medication therapy she is currently supposed to take Keppra as well as Vimpat which was started during her most recent hospitalization on June 18. She was supposed to take Vimpat 100 mg twice a day for the first week and then increase it to 200 mg twice a day. She reports that she has been compliant with her Keppra and Vimpat however she is a poor historian and is difficult to ascertain if she is being truthful. She has a history of cocaine abuse but does not recall the last time that she used any cocaine. She reports that she has not used the Dilantin since being discharged in mid June as this was discontinued secondary to supratherapeutic Dilantin levels. During her most recent hospitalization she had an EEG performed on June 20 revealing IMPRESSION: Some mild diffuse theta slowing consistent with diffuse encephalopathy but no focal abnormality was noted, no seizure activity was seen. The patient is currently awake, alert, feels well. Dilantin level is 1.1 which is to be expected as the patient had her Dilantin discontinued. WBC count is 14.3. Her drug screen is positive for cocaine and cannabinoids. She was once again counseled on the importance of ceasing was a drug use. Plan is to discharge and have her follow-up with her neurologist Dr. Knott. She is agreeable to this plan. Diagnosis Primary Impression: History of seizures Additional Impression: Polysubstance abuse Referrals: Tip Knott MD PhD Additional Instruction: Take your seizure medication as prescribed. Avoid drug use. Follow-up with Dr. Knott. No driving, operating heavy machinery, climbing ladders for 6 months from date of your most recent seizure which is today. Med/Other Pt SpecificInfo: No Change to Meds Disposition: 01 DISCHARGE HOME Condition: Stable Elliott Arceo Jun 29, 2017 19:26
[2017-06-29 19:39] LABS: ALT (GPT) 24 U/L (10-53)
[2017-06-29 19:41] LABS: ALKALINE PHOSPHATASE 167 U/L (45-117); PHENYTOIN (DILANTIN) 1.1 MCG/ML (10.0-20.0); TOTAL BILIRUBIN ADULT 0.3 MG/DL (0.2-1.0); TOTAL PROTEIN 8.6 GM/DL (6.4-8.2)
[2017-06-29 19:44] LABS: ALBUMIN 3.1 GM/DL (3.4-5.0); AST (GOT) 38 U/L (15-37); BICARBONATE 21.9 MEQ/L (21.0-32.0); BLOOD UREA NITROGEN 5 MG/DL (7-18); CALCIUM 8.8 MG/DL (8.5-10.1); CHLORIDE 104 MEQ/L (98-107); CREATININE 0.86 MG/DL (0.50-1.00); GLOMERULAR FILTRATION RATE 84 ML/MIN (>89); GLUCOSE,RANDOM 99 MG/DL (74-106); SODIUM (NA) 136 MEQ/L (136-145)
--- NOTE | 2017-06-30 20:38 | EKG ---
Date Performed: 06/29/2017 Time Performed: 19:03:17 PTAGE: 51 years EKG: Sinus rhythm WITH FIRST DEGREE AV BLOCK NONSPECIFIC T-WAVE ABNORMALITY ABNORMAL ECG PREVIOUS TRACING : 06/17/2017 23.13 Since the previous tracing, no significant change noted DOCTOR: Dave Mathur Interpretating Date/Time 06/30/2017 20:37:46
== END 2017-06-29 21:55 | disposition home or self-care (01) ==
LOC: NEPD 18:01
DX: G40.409 Other generalized epilepsy and epileptic syndromes, not intractable, without status epilepticus (principal); F12.90 Cannabis use, unspecified, uncomplicated; F14.10 Cocaine abuse, uncomplicated; I10 Essential (primary) hypertension
CPT/HCPCS: 80053; 80185; 80307; 85025; 93005; 99283; J7030

== ENCOUNTER 2017-07-16 18:14 | Emergency (ER) | payer MEDICARE, MEDICAID ==
[~2017-07-16] VITALS: Ht 152.4 cm; Wt 65.0 kg
[2017-07-16 18:25] VITALS: BP 124/67; PULSE 77; RESP 16; TEMP 98.4; O2SAT 95
== END 2017-07-16 18:50 | disposition left against medical advice (07) ==
LOC: NED 18:14
DX: R56.9 Unspecified convulsions (principal); Z53.21 Procedure and treatment not carried out due to patient leaving prior to being seen by health care provider
CPT/HCPCS: 99281